=== PATIENT | male | born 1960 | race Caucasian/White ===

== ENCOUNTER 2017-03-07 02:28 | Inpatient (IN) | payer MEDICARE, OTHER ==
--- NOTE | 2017-03-07 02:47 | HP ---
COWS - Scale Resting Pulse: 0= [place] 80 or Below Sweatin= No chills or Flushing Restless Observation: 5= Unable to Sit Still Pupil Size: 1= Pupils >than Normal Bone or Joint Aches: 4=Acute Joint/Muscle Pain Runny Nose/ Eye Tearin= None GI Upset > 30mins: 1= Stomach Cramp Tremor Observation: 2= Slight Tremor Visible Yawning Observation: 1= 1-2x During Session Anxiety or Irritability: 2=Irritable/Anxious Goose Flesh Skin: 0=Smooth Skin COWS Score: 16 Admission ROS BHS - HPI Chief Complaint: c/o opioid dependence. seeking detox txment Allergies/Adverse Reactions: Allergies Allergy/AdvReac Type Severity Reaction Status Date / Time Fish Containing Products Allergy Swelling Verified 03/07/17 02:42 [Fish Product Derivatives] No Known Drug Allergies Allergy Verified 03/07/17 02:42 History of Present Illness: 56 Y.O. MALE WITH OPIOID DEPENDENCE ADMITTED FOR DETOX TXMENT Exam Limitations: No Limitations - Ebola screening Have you traveled outside of the country in the last 21 days: No Have you had contact with anyone from an Ebola affected area: No Do you have a fever: No - Review of Systems Constitutional: Loss of Appetite, Malaise EENT: reports: Dental Problems (DENTURES) Respiratory: reports: No Symptoms reported Cardiac: reports: No Symptoms Reported GI: reports: Abdominal cramping : reports: No Symptoms Reported Musculoskeletal: reports: Back Pain, Joint Pain, Neck Pain Integumentary: reports: No Symptoms Reported Neuro: reports: No Symptoms reported Endocrine: reports: No Symptoms Reported Hematology: reports: No Symptoms Reported Psychiatric: reports: Anxious, Depressed Other Systems: Reviewed and Negative Patient History - Patient Medical History Hx Anemia: No Hx Asthma: No Hx Chronic Obstructive Pulmonary Disease (COPD): No Hx Cardiac Disorders: No Hx Congestive Heart Failure: No Hx Hypertension: No Hx Hypercholesterolemia: No Hx Pacemaker: No HX Cerebrovascular Accident: No Hx Seizures: No Hx Dementia: No Hx Diabetes: No Hx Gastrointestinal Disorders: No Hx Liver Disease: No Hx Genitourinary Disorders: No Hx Sexually Transmitted Disorders: No Hx Renal Disease (ESRD): No Hx Thyroid Disease: No Hx Human Immunodeficiency Virus (HIV): No Hx Hepatitis C: Yes (NO [place]) Hx Depression: Yes Hx Suicide Attempt: No Hx Bipolar Disorder: No Hx Schizophrenia: No Other Medical History: DENIES - Patient Surgical History Past Surgical History: Yes Hx Neurologic Surgery: No Hx Cataract Extraction: No Hx Cardiac Surgery: No Hx Lung Surgery: No Hx Breast Surgery: No Hx Breast Biopsy: No Hx Abdominal Surgery: Yes (HERNIA SX R inguinal hernia repair in ) Hx Appendectomy: No Hx Cholecystectomy: No Hx Genitourinary Surgery: No Hx Section: No Hx Orthopedic Surgery: No Anesthesia Reaction: No - PPD History Previous Implant?: Yes Documented Results: Negative w/proof Implanted On Prior [facility] [place] Admission?: Yes Date: 02/26/15 Results: 0mm PPD to be Administered?: Yes - Smoking Cessation Smoking history: Current every day smoker Have you smoked in the past 12 months: Yes Aproximately how many cigarettes per day: 10 Cigars Per Day: 0 Hx Chewing Tobacco Use: No Initiated information on smoking cessation: Yes 'Breaking Loose' booklet given: 03/07/17 - Substance & Tx. History Hx Alcohol Use: No Hx Substance Use: Yes Substance Use Type: Cocaine, Heroin Hx Substance Use Treatment: Yes ([facility]) - Substances Abused HEROINE Route: Injection Frequency: Daily Amount used: 10 BAGS Age of first use: 24 Date of Last Use: 03/06/17 COCAINE Route: Smoking Frequency: Daily Amount used: 1 GM Age of first use: 18 Date of Last Use: 03/06/17 Family Disease History - Family Disease History Family Disease History: Heart Disease: Father (HAD RI AND ), Mother (HAD RI AND ) Admission Physical Exam [facility] - Physical General Appearance: Yes: Appropriately Dressed, Anxious, Other (RESTLESSNESS) HEENTM: Yes: EOMI, Normocephalic, ADALBERTO, Pharynx Normal, Other (DENUTES UPPER AND LOWER) Respiratory: Yes: Chest Non-Tender, Lungs Clear, Normal Breath Sounds, No Respiratory Distress, No Accessory Muscle Use Neck: Yes: No masses,lesions,Nodules, Supple, Trachea in good position Breast: Yes: Breast Exam Deferred Cardiology: Yes: Regular Rhythm, Regular Rate, S1, S2 Abdominal: Yes: Normal Bowel Sounds, Non Tender, Flat, Soft Genitourinary: Yes: Within Normal Limits Back: Yes: Normal Inspection Musculoskeletal: Yes: full range of Motion, Gait Steady Extremities: Yes: Normal Capillary Refill, Normal Range of Motion, Non-Tender, Tremors Neurological: Yes: Within Normal Limits, Alert Integumentary: Yes: Normal Color, Dry, Warm, Track Goodman Lymphatic: Yes: Within Normal Limits - Diagnostic (1) Nicotine dependence Current Visit: Yes Status: Chronic Qualifiers: Nicotine product type: cigarettes Substance use status: uncomplicated Qualified Code(s): F17.210 - Nicotine dependence, cigarettes, uncomplicated (2) Opioid dependence with withdrawal Current Visit: Yes Status: Chronic (3) Cocaine dependence, uncomplicated Current Visit: Yes Status: Chronic Cleared for Admission [facility] - Detox or Rehab [facility] Level of Care: Medically Managed Detox Regimen/Protocol: Methadone [facility] Breath Alcohol Content Breath Alcohol Content: 0 Vital Signs - Vital Signs Vital Signs Refused: No Temperature: 98.4 F Temperature Source: Oral Pulse Rate: 73 Respiratory Rate: 20 Blood Pressure: 111/76 BP Location: Left Arm Blood Pressure Position: Sitting - Height Height: 5 ft 11 in - Weight Weight: 65.771 kg Weight Measurement Method: Standing Scale Body Mass Index (BMI): 20.2 Urine Drug Screen - Test Device Lot Number: [id number] Expiration Date: 12/17/18 - Control Is Test Valid: Yes - Results Drug Screen Negative: No Urine Drug Screen Results: CHANDA-Cocaine, OPI-Opiates
[2017-03-07] MEDS ORDERED: diphenhydrAMINE HCL 50 MG CAPSULE PO PRN (02:57)
[2017-03-07] MEDS ORDERED: LOPERAMIDE HCL 2 MG CAPSULE PO PRN (02:57)
[2017-03-07] MEDS ORDERED: MAGNESIUM CITRATE 300 ML BOTTLE PO PRN (02:57)
[2017-03-07] MEDS ORDERED: hydrOXYzine PAMOATE 50 MG CAPSULE (FP) PO PRN (02:57)
[2017-03-07] MEDS ORDERED: MAG HYDROX/AL HYDROX/SIMETH 30 ML UNIT-DOSE CUP PO PRN (02:57)
[2017-03-07] MEDS ORDERED: ACETAMINOPHEN 325 MG TABLET (FP) PO PRN (02:57)
[2017-03-07] MEDS ORDERED: MENTHOL/PHENOL 1 EACH UD MM PRN (02:57)
[2017-03-07] MEDS ORDERED: MAGNESIUM HYDROX 2400MG/30ML ORAL SUSPENSION 30 ML CUP PO PRN (02:57)
[2017-03-07] MEDS ORDERED: P-EPHED 60MG/TRIPROLIDI 2.5MG TABLET PO PRN (02:57)
[2017-03-07] MEDS ORDERED: NICOTINE POLACRILEX 2 MG GUM BC PRN (02:57)
[2017-03-07] MEDS ORDERED: METHADONE HCL 10 MG TABLET (FOR DETOX USE ONLY) PO ONE ×3 (02:57→23:00)
[2017-03-07] MEDS ORDERED: guaiFENesin/D-METHORPHAN HB 10 ML UNIT-DOSE CUPS PO PRN (02:57)
[2017-03-07] MEDS ORDERED: IBUPROFEN 400 MG TABLET (FP) PO PRN (02:57)
[2017-03-07 02:58] VITALS: BMI 20.2
[2017-03-07] MEDS: diazePAM 5 MG TABLET PO PRN ×4 (03:40→22:14)
--- NOTE | 2017-03-07 07:44 | CONSULT ---
[facility] Psychiatric Consult - Data Date of interview: 03/07/17 Identifying data: This is 56 years old male with no psychiatric hospitalization history intoxicated with: Cocaine, Heroin, Nicotine, history of Al;cohol and Xanax abuse/dependency Substance Abuse History: - Smoking Cessation. Smoking history: Current every day smoker. Have you smoked in the past 12 months: Yes. Aproximately how many cigarettes per day: 10. Cigars Per Day: 0. Hx Chewing Tobacco Use: No. Initiated information on smoking cessation: Yes. 'Breaking Loose' booklet given : 03/07/17. - Substance & Tx. History. Hx Alcohol Use: No. Hx Substance Use: Yes. Substance Use Type: Cocaine, Heroin. Hx Substance Use Treatment: Yes ( [facility]). - Substances Abused. HEROINE. Route: Injection. Frequency: Daily. Amount used: 10 BAGS. Age of first use: 24. Date of Last Use: 03/06/17. COCAINE. Route: Smoking. Frequency: Daily. Amount used: 1 GM. Age of first use: 18. Date of Last Use: 03/06/17 Medical History: He0pC+, Hypercholesterolemia Psychiatric History: Patient reports history of anxiety and [id number], reports tyaking prior to admission: Seroquel 50mg p[o qhs Physical/Sexual Abuse/Trauma History: Denies Additional Comment: Seroquel 50mg p[o qhs Mental Status Exam - Mental Status Exam Alert and Oriented to: Person Cognitive Function: Fair Patient Appearance: Unkempt Mood: Anxious Affect: Mood Congruent Patient Behavior: Cooperative Speech Pattern: Appropriate Voice Loudness: Normal Thought Process: Circumstantial Thought Disorder: Being Controlled Hallucinations: Denies Suicidal Ideation: Denies Homicidal Ideation: Denies Insight/Judgement: Fair Sleep: Difficulty falling asleep Appetite: Weight loss Muscle strength/Tone: Normal Gait/Station: Normal Additional Comments: Seroquel 50mg p[o qhs Psychiatric Findings - Problem List ([place] 1, 2,3) (1) Cocaine dependence, uncomplicated Current Visit: Yes Status: Chronic (2) Nicotine dependence Current Visit: Yes Status: Chronic Qualifiers: Nicotine product type: cigarettes Substance use status: uncomplicated Qualified Code(s): F17.210 - Nicotine dependence, cigarettes, uncomplicated (3) Opioid dependence with withdrawal Current Visit: Yes Status: Chronic (4) Alcohol dependence Current Visit: No Status: Active (5) Cocaine abuse Current Visit: No Status: Active (6) MARIJUANA Current Visit: No Status: Active (7) Anxiety Current Visit: No Status: Acute (8) Drug-induced mood disorder Current Visit: No Status: Acute (9) Opioid dependence Current Visit: No Status: Acute (10) Substance induced mood disorder Current Visit: No Status: Acute Comment: Seroquel 50mg p[o qhs
--- NOTE | 2017-03-07 09:58 | PN ---
BHS COWS - Scale Resting Pulse: 0= [place] 80 or Below Sweatin=Flushed/Facial Moisture Restless Observation: 1= Difficult to Sit Still Pupil Size: 1= Pupils >than Normal Bone or Joint Aches: 2= Severe Diffuse Aches Runny Nose/ Eye Tearin= Nasal Congestion GI Upset > 30mins: 2= Nausea/Diarrhea Tremor Observation of Outstretched Hands: 1= Tremor [place], Not Seen Yawning Observation: 0= None Anxiety or Irritability: 2=Irritable/Anxious Goose Flesh Skin: 0=Smooth Skin COWS Score: 12 BHS Progress Note (SOAP) Subjective: interrupted sleep, sweats, shakes, nausea, Objective: 03/07/17 09:56 Vital Signs Temperature 98.1 F 03/07/17 06:00 Pulse Rate 65 03/07/17 06:00 Respiratory Rate 18 03/07/17 06:00 Blood Pressure 87/56 03/07/17 06:00 O2 Sat by Pulse Oximetry (%) labs pending pt aox3 in nad ambulating Assessment: 03/07/17 09:57 withdrawal sx;s Plan: cont. detox increase fluids f/up pending labs
[2017-03-07 10:14] LABS: MCH 30.3 pg (25.7-33.7); MEAN PLT VOLUME 8.9 fl (7.5-11.1); PLATELET COUNT 241 K/MM3 (134-434); RDW 13.1 % (11.9-15.9); WHITE BLOOD COUNT 6.2 K/mm3 (4.0-10.0)
[2017-03-07 10:28] LABS: ALBUMIN 3.5 g/dl (3.4-5.0); ANION GAP 5 (8-16); BILIRUBIN,TOTAL 0.4 mg/dL (0.2-1.0); CO2 32 mmol/L (21-32); GLUCOSE,RANDOM 97 mg/dL (74-106); SGOT/AST 15 U/L (15-37); SGPT/ALT 18 U/L (12-78); TOT PROT 7.3 g/dl (6.4-8.2)
[2017-03-07 10:29] LABS: ALK PHOS 65 U/L (45-117)
[2017-03-07 11:00] LABS: HIV 1 & 2 AB NEGATIVE; HIV 1 AGp24 NEGATIVE
[2017-03-07] MEDS: PRENATAL VITAMINS W/ FOLIC ACID TABLET (FP) PO SCH (11:13)
[2017-03-07] MEDS: NICOTINE 14 MG/24 HOURS TOPICAL PATCH TD SCH (11:14)
--- NOTE | 2017-03-07 14:23 | EKG ---
Test Reason : Blood Pressure : / mmHG Vent. Rate : 067 BPM Atrial Rate : 067 BPM P-R Int : 166 ms QRS Dur : 086 ms QT Int : 406 ms P-R-T Axes : 075 059 048 degrees QTc Int : 429 ms NORMAL SINUS RHYTHM NORMAL ECG NO PREVIOUS ECGS AVAILABLE Confirmed by AMINAH REYES MD ([id number]) on 03/07/2017 2:22:51 PM Referred By: Confirmed By:AMINAH REYES MD
[2017-03-07 15:30] LABS: URINE APPEARANCE CLEAR; URINE BILIRUBIN NEGATIVE (NEGATIVE); URINE BLOOD NEGATIVE (NEGATIVE); URINE COLOR YELLOW; URINE GLUCOSE (UA) NEGATIVE (NEGATIVE); URINE KETONE NEGATIVE (NEGATIVE); URINE LEUK ESTERASE NEGATIVE (NEGATIVE); URINE NITRITE NEGATIVE (NEGATIVE); URINE PROTEIN NEGATIVE (NEGATIVE); URINE UROBILINOGEN NEGATIVE E.U./dl (0.2-1.0)
[2017-03-07] MEDS ORDERED: QUEtiapine FUMARATE 50 MG TABLET PO SCH (22:00)
[2017-03-07] MEDS ORDERED: THIAMINE HCL 100 MG TABLET (FP) PO SCH (22:00)
[2017-03-08] MEDS ORDERED: METHADONE HCL 10 MG TABLET (FOR DETOX USE ONLY) PO ONE (10:00)
[2017-03-08] MEDS: NICOTINE 14 MG/24 HOURS TOPICAL PATCH TD SCH (10:17)
[2017-03-08] MEDS: PRENATAL VITAMINS W/ FOLIC ACID TABLET (FP) PO SCH (10:17)
[2017-03-08] MEDS: diazePAM 5 MG TABLET PO PRN (10:18)
--- NOTE | 2017-03-08 10:21 | PN ---
BHS COWS - Scale Resting Pulse: 0= [place] 80 or Below Sweatin=Flushed/Facial Moisture Restless Observation: 1= Difficult to Sit Still Pupil Size: 1= Pupils >than Normal Bone or Joint Aches: 2= Severe Diffuse Aches Runny Nose/ Eye Tearin= Nasal Congestion GI Upset > 30mins: 1= Stomach Cramp Tremor Observation of Outstretched Hands: 1= Tremor [place], Not Seen Yawning Observation: 0= None Anxiety or Irritability: 2=Irritable/Anxious Goose Flesh Skin: 0=Smooth Skin COWS Score: 11 S Progress Note (SOAP) Subjective: interrupted sleep, sweats, bodyaches Objective: 03/08/17 10:19 Vital Signs Temperature 97.3 F L 03/08/17 10:15 Pulse Rate 94 H 03/08/17 10:15 Respiratory Rate 16 03/08/17 10:15 Blood Pressure 131/85 03/08/17 10:15 O2 Sat by Pulse Oximetry (%) Laboratory Tests 03/07/17 03/07/17 03/07/17 07:00 07:00 07:00 WBC 6.2 RBC 4.33 Hgb 13.1 Hct 39.8 MCV 92.0 MCHC 33.0 RDW 13.1 Plt Count 241 MPV 8.9 Sodium 142 Potassium 4.2 Chloride 105 Carbon Dioxide 32 Anion Gap 5 L BUN 25 H D Creatinine 1.0 Creat Clearance w eGFR > 60 Random Glucose 97 D Calcium 9.0 Total Bilirubin 0.4 D AST 15 D ALT 18 Alkaline Phosphatase 65 Total Protein 7.3 Albumin 3.5 Urine Color Urine Appearance Urine pH Ur Specific [place] Urine Protein Urine Glucose (UA) Urine Ketones Urine Blood Urine Nitrite Urine Bilirubin Urine Urobilinogen Ur Leukocyte Esterase RPR Titer Hepatitis C Antibody >11.0 H HIV 1&2 Antibody Screen HIV P24 Antigen 03/07/17 03/07/17 03/07/17 07:00 07:00 10:00 WBC RBC Hgb Hct MCV MCHC RDW Plt Count MPV Sodium Potassium Chloride Carbon Dioxide Anion Gap BUN Creatinine Creat Clearance w eGFR Random Glucose Calcium Total Bilirubin AST ALT Alkaline Phosphatase Total Protein Albumin Urine Color Yellow Urine Appearance Clear Urine pH 5.0 Ur Specific [place] 1.025 Urine Protein Negative Urine Glucose (UA) Negative Urine Ketones Negative Urine Blood Negative Urine Nitrite Negative Urine Bilirubin Negative Urine Urobilinogen Negative Ur Leukocyte Esterase Negative RPR Titer Nonreactive Hepatitis C Antibody HIV 1&2 Antibody Screen Negative HIV P24 Antigen Negative pt aox3 in nad but irritable Assessment: 03/08/17 10:20 withdrawal sx's Plan: cont. detox increase fluids motrin prn may wear own shoes
[2017-03-08 13:20] VITALS: BP 142/88; PULSE 89; TEMP 96.1
--- NOTE | 2017-03-08 14:40 | DS ---
[facility] Detox Discharge Summary Admission Date: 03/07/17 Discharge Date: 03/08/17 - History Present History: Alcohol Dependence, Cocaine Dependence, Opioid Dependence, Sedative Dependence - Physical Exam Results Vital Signs: Vital Signs Temperature 96.1 F L 03/08/17 13:20 Pulse Rate 89 03/08/17 13:20 Respiratory Rate 20 03/08/17 13:20 Blood Pressure 142/88 03/08/17 13:20 O2 Sat by Pulse Oximetry (%) - Treatment Hospital Course: Detox Protocol Followed - Medication Discharge Medications: Ambulatory Orders Quetiapine Fumarate [Seroquel -] 100 mg PO HS #30 tablet 02/24/15 No Known Home Medication 03/07/17 Quetiapine Fumarate [Seroquel -] 50 mg PO HS #30 tablet 03/07/17 - Diagnosis (1) Cocaine dependence, uncomplicated Current Visit: Yes Status: Chronic (2) Nicotine dependence Current Visit: Yes Status: Chronic Qualifiers: Nicotine product type: cigarettes Substance use status: uncomplicated Qualified Code(s): F17.210 - Nicotine dependence, cigarettes, uncomplicated (3) Opioid dependence with withdrawal Current Visit: Yes Status: Chronic (4) Alcohol dependence Current Visit: Yes Status: Chronic (5) Cocaine abuse Current Visit: No Status: Active (6) MARIJUANA Current Visit: Yes Status: Chronic (7) Anxiety Current Visit: Yes Status: Chronic (8) Hepatitis C Current Visit: Yes Status: Chronic Qualifiers: Hepatic coma status: without hepatic coma - AMA Did Patient Leave Against Medical Advice: Yes (states hes not getting enough methadone and he's leaving )
[2017-03-09] MEDS ORDERED: METHADONE HCL 5 MG TABLET (FOR DETOX USE ONLY) PO ONE (10:00)
[2017-03-10] MEDS ORDERED: METHADONE HCL 5 MG TABLET (FOR DETOX USE ONLY) PO ONE (10:00)
[2017-03-11] MEDS ORDERED: METHADONE HCL 10 MG TABLET (FOR DETOX USE ONLY) PO ONE (10:00)
[2017-03-12] MEDS ORDERED: METHADONE HCL 5 MG TABLET (FOR DETOX USE ONLY) PO ONE (06:00)
== END 2017-03-08 14:50 | disposition left against medical advice (07) | DRG 770 ==
LOC: YASAS 02:28 → Y6N 02:46
PROVIDERS: ADMIT Internal Medicine; ATTEND Internal Medicine
PROC: HZ2ZZZZ Detoxification Services for Substance Abuse Treatment (ICD-10-PCS; principal; 2017-03-07)
DX: F11.23 Opioid dependence with withdrawal (principal); F10.230 Alcohol dependence with withdrawal, uncomplicated; F14.20 Cocaine dependence, uncomplicated; F12.20 Cannabis dependence, uncomplicated; F17.210 Nicotine dependence, cigarettes, uncomplicated; F19.24 Other psychoactive substance dependence with psychoactive substance-induced mood disorder; F41.9 Anxiety disorder, unspecified; B18.2 Chronic viral hepatitis C
CPT/HCPCS: 36415; 80053; 81003; 85027; 86593; 86803; 87389; 87522; 93005; 93010

== ENCOUNTER 2018-12-27 18:04 | Inpatient (IN) | payer OTHER ==
[2018-12-27 21:38] VITALS: BMI 20.2
--- NOTE | 2018-12-27 22:28 | HP ---
CIWA Score Nausea/Vomitin-No Nausea/No Vomiting Muscle Tremors: 4-Moderate,w/Arms Extend Anxiety: 4-Mod. Anxious/Guarded Agitation: 4-Moderately Restless Paroxysmal Sweats: 3 Orientation: 0-Oriented Tacttile Disturbances: 2-Mild Itch/Numbness/Burn Auditory Disturbances: 0-None Visual Disturbances: 0-None Headache: 0-None Present CIWA-Ar Total Score: 17 - Admission Criteria [facility] Guidelines: Admission for Medically Managed Detox: Requires at least one of the followin. CIWA greater than 12 2. Seizures within the past 24 hours 3. Delirium tremens within the past 24 hours 4. Hallucinations within the past 24 hours 5. Acute intervention needed for co occurring medical disorder 6. Acute intervention needed for co occurring psychiatric disorder 7. Severe withdrawal that cannot be handled at a lower level of care (continued vomiting, continued diarrhea, abnormal vital signs) requiring intravenous medication and/or fluids 8. Patient presents the following: CIWA greater than 12 Admission Criteria Met: Admission criteria met Admission ROS [facility] Chief Complaint: SEEKING DETOX FOR WITHDRAWAL SX'S Allergies/Adverse Reactions: Allergies Allergy/AdvReac Type Severity Reaction Status Date / Time Fish Containing Products Allergy Swelling Verified 12/27/18 21:30 [Fish Product Derivatives] No Known Drug Allergies Allergy Verified 12/27/18 21:30 History of Present Illness: 58 Y.O. MALE WITH HX/O OPIOID, ALCOHOL AND COCAINE DEPENDENCE HERE FOR ALCOHOL DETOX. CLIENT IS PRESENTLY ON MMMTP. REPORTS DOSE 70 MG LDM TODAY AT [facility]. CLIENT IS SELF REFERRED HE IS KNOWN TO THIS PROGRAM. LAST HERE 2016. PRESENTS TODAY WITH C/O WITHDRAWAL SX'S. CIWA 17. DENIES ANY SIGNIFICANT PERIOD OF CLEAN TIME. DENIES HX/O SEIZURE BUT DOES REPORT HX/O DRUG OVERDOSE. DENIES SI /HI/AVH. HOMELESS, DENIES LEGALS Exam Limitations: No Limitations - Ebola screening Have you traveled outside of the country in the last 21 days: No (N) Have you had contact with anyone from an Ebola affected area: No Do you have a fever: No - Review of Systems Constitutional: Chills, Loss of Appetite, Malaise, Night Sweats, Changes in sleep EENT: reports: Dental Problems (DENTURES NOT WITH PATIENT/ MISSING TEETH) Respiratory: reports: No Symptoms reported Cardiac: reports: No Symptoms Reported GI: reports: Poor Appetite, Poor Fluid Intake : reports: No Symptoms Reported Musculoskeletal: reports: No Symptoms Reported Integumentary: reports: No Symptoms Reported Neuro: reports: Numbness, Tingling, Tremors Endocrine: reports: No Symptoms Reported Hematology: reports: No Symptoms Reported Psychiatric: reports: Orientated x3, Anxious, Depressed Other Systems: Reviewed and Negative Patient History - Patient Medical History Hx Anemia: No Hx Asthma: No Hx Chronic Obstructive Pulmonary Disease (COPD): No Hx Cardiac Disorders: No Hx Congestive Heart Failure: No Hx Hypertension: No Hx Hypercholesterolemia: No Hx Pacemaker: No HX Cerebrovascular Accident: No Hx Seizures: No Hx Dementia: No Hx Diabetes: No Hx Gastrointestinal Disorders: No Hx Liver Disease: No Hx Genitourinary Disorders: No Hx Sexually Transmitted Disorders: No Hx Renal Disease (ESRD): No Hx Thyroid Disease: No Hx Human Immunodeficiency Virus (HIV): No Hx Hepatitis C: Yes (NO [place]) Hx Depression: Yes Hx Suicide Attempt: No Hx Bipolar Disorder: No Hx Schizophrenia: No - Patient Surgical History Past Surgical History: Yes Hx Neurologic Surgery: No Hx Cataract Extraction: No Hx Cardiac Surgery: No Hx Lung Surgery: No Hx Breast Surgery: No Hx Breast Biopsy: No Hx Abdominal Surgery: Yes (HERNIA SX R inguinal hernia repair in ) Hx Appendectomy: No Hx Cholecystectomy: No Hx Genitourinary Surgery: No Hx Section: No Hx Orthopedic Surgery: No Anesthesia Reaction: No - PPD History Previous Implant?: Yes Documented Results: Negative w/proof Implanted On Prior [facility] Admission?: Yes Date: 03/07/17 Results: 0mm PPD to be Administered?: Yes - Smoking Cessation Smoking history: Current every day smoker Have you smoked in the past 12 months: Yes Aproximately how many cigarettes per day: 20 Cigars Per Day: 0 Hx Chewing Tobacco Use: No Initiated information on smoking cessation: Yes 'Breaking Loose' booklet given: 12/27/18 - Substance & Tx. History Hx Alcohol Use: Yes Hx Substance Use: Yes Substance Use Type: Alcohol, Cocaine, Heroin, Prescribed (METHADONE 70 MG) Hx Substance Use Treatment: Yes ([facility]) - Substances abused Alcohol Substance route: Oral Frequency: Daily Amount used: 1 1/2 PINT OF [place]OD[place] Age of first use: 16 Date of last use: 12/26/18 Heroin Substance route: Injection Frequency: 1-2 times per week Amount used: 5 BAGS WHEN USED Age of first use: 24 Date of last use: 12/26/18 Cocaine Substance route: Smoking Frequency: Daily Amount used: 1 GM Age of first use: 23 Date of last use: 12/26/18 Family Disease History - Family Disease History Family Disease History: Heart Disease: Father (HAD MA AND ), Mother (HAD MA AND ) Admission Physical Exam [facility] - Vital Signs Vital Signs: Vital Signs - 24 hr 12/27/18 21:32 Temperature 97.1 F L Pulse Rate 62 Respiratory 18 Rate Blood Pressure 111/67 - Physical General Appearance: Yes: Tremorous (FELT), Anxious HEENTM: Yes: Normocephalic, Normal Voice, ADALBERTO, Pharynx Normal, Nasal Congestion , Other (EDENTULOUS) Respiratory: Yes: Chest Non-Tender, Lungs Clear, Normal Breath Sounds, No Respiratory Distress, No Accessory Muscle Use Neck: Yes: No masses,lesions,Nodules, Supple, Trachea in good position Breast: Yes: Breast Exam Deferred Cardiology: Yes: Regular Rhythm, Regular Rate, S1, S2 Abdominal: Yes: Normal Bowel Sounds, Non Tender, Soft Genitourinary: Yes: Within Normal Limits Back: Yes: Normal Inspection Musculoskeletal: Yes: full range of Motion, Gait Steady Extremities: Yes: Normal Range of Motion, Non-Tender, Tremors (FELT) Neurological: Yes: Fully Oriented, Alert, Motor Strength 5/5, Depressed Affect Integumentary: Yes: Dry, Warm Lymphatic: Yes: Within Normal Limits - Diagnostic (1) Alcohol dependence with uncomplicated withdrawal Current Visit: Yes Status: Acute (2) Methadone maintenance therapy patient Current Visit: Yes Status: Chronic (3) Cocaine abuse, uncomplicated Current Visit: Yes Status: Acute (4) Drug-induced mood disorder Current Visit: Yes Status: Acute (5) Nicotine dependence Current Visit: Yes Status: Chronic Qualifiers: Nicotine product type: cigarettes Substance use status: uncomplicated Qualified Code(s): F17.210 - Nicotine dependence, cigarettes, uncomplicated (6) Hepatitis C Current Visit: Yes Status: Acute Cleared for Admission [facility] - Detox or Rehab [facility] Level of Care: Medically Managed Detox Regimen/Protocol: Librium Claeared for Rehab Admission: No Breathalyzer - Breathalyzer Breathalyzer: 0 Urine Drug Screen - Test Device Lot number: [id number] Expiration date: 08/18/20 - Control Is test valid?: Yes - Results Drug screen NEGATIVE: No Urine drug screen results: CHANDA-Cocaine, FEN-Fentanyl, MOP-Opiates, MTD-Methadone Inpatient Rehab Admission - Rehab Decision to Admit Inpatient rehab admission?: No
[2018-12-27] MEDS ORDERED: MAGNESIUM CITRATE 300 ML BOTTLE PO PRN (22:30)
[2018-12-27] MEDS ORDERED: P-EPHED 60MG/TRIPROLIDI 2.5MG TABLET PO PRN (22:30)
[2018-12-27] MEDS ORDERED: BISMUTH SUBSALICYLATE 524 MG/30 ML UD PO PRN (22:30)
[2018-12-27] MEDS ORDERED: chlordiazePOXIDE HCL 10 MG CAPSULE PO PRN (22:30)
[2018-12-27] MEDS ORDERED: MENTHOL/PHENOL 1 EACH UD MM PRN (22:30)
[2018-12-27] MEDS ORDERED: NICOTINE POLACRILEX 2 MG GUM BUC PRN (22:30)
[2018-12-27] MEDS ORDERED: ACETAMINOPHEN 325 MG TABLET (FP) PO PRN ×2 (22:30)
[2018-12-27] MEDS ORDERED: MAGNESIUM HYDROX 2400MG/30ML ORAL SUSPENSION 30 ML CUP PO PRN (22:30)
[2018-12-27] MEDS ORDERED: ONDANSETRON *ODT* 4 MG TABLET SL PRN (22:30)
[2018-12-27] MEDS ORDERED: hydrOXYzine PAMOATE 25 MG CAPSULE (FP) PO PRN (22:30)
[2018-12-27] MEDS ORDERED: MAG HYDROX/AL HYDROX/SIMETH 30 ML UNIT-DOSE CUP PO PRN (22:30)
[2018-12-27] MEDS ORDERED: guaiFENesin 200 MG/10 ML 10 ML UNIT-DOSE CUPS PO PRN (22:30)
[2018-12-27] MEDS ORDERED: DICYCLOMINE HCL 10 MG CAPSULE PO PRN (22:30)
[2018-12-27] MEDS ORDERED: METHOCARBAMOL 500 MG TABLET PO PRN (22:30)
[2018-12-27] MEDS ORDERED: MELATONIN 5 MG TABLETS PO PRN (22:30)
[2018-12-27] MEDS ORDERED: IBUPROFEN 400 MG TABLET (FP) PO PRN (22:30)
[2018-12-27] MEDS: chlordiazePOXIDE HCL 25 MG CAPSULE PO SCH (23:59)
[2018-12-28] MEDS: chlordiazePOXIDE HCL 25 MG CAPSULE PO SCH ×2 (06:34→14:26)
[2018-12-28] MEDS ORDERED: METHADONE HCL 10 MG TABLET PO ONE (08:59)
[2018-12-28] MEDS ORDERED: METHADONE 40 MG, METHADONE 30 MG PO ONE (09:15)
[2018-12-28] MEDS ORDERED: METHADONE HCL 10 MG TABLET ONE (09:20)
[2018-12-28] MEDS ORDERED: METHADONE HCL 40 MG DISPERSABLE TABLET ONE (09:20)
--- NOTE | 2018-12-28 09:54 | PN ---
BHS CIWA - CIWA Score Nausea/Vomitin Muscle Tremors: 2 Anxiety: 2 Agitation: 2 Paroxysmal Sweats: 1-Minimal Palms Moist Orientation: 0-Oriented Tacttile Disturbances: 1-Very Mild Itch/Numbness Auditory Disturbances: 1-Very Mild Visual Disturbances: 0-None Headache: 2-Mild CIWA-Ar Total Score: 13 BHS Progress Note (SOAP) Subjective: alert,irritable,anxious,interrupted sleep,tremor, Objective: 12/28/18 10:01 Vital Signs Temperature 97.7 F 12/28/18 09:04 Pulse Rate 61 12/28/18 09:04 Respiratory Rate 18 12/28/18 09:04 Blood Pressure 117/56 L 12/28/18 09:04 O2 Sat by Pulse Oximetry (%) labs pending Assessment: 12/28/18 10:01 withdrawal symptom Plan: continue detox
[2018-12-28 10:19] LABS: HEMATOCRIT 40.4 % (35.4-49); HEMOGLOBIN 13.2 GM/dL (11.7-16.9); MCH 30.1 pg (25.7-33.7); MCHC 32.7 g/dl (32.0-35.9); MEAN CELL VOLUME 91.9 fl (80-96); MEAN PLT VOLUME 9.4 fl (7.5-11.1); PLATELET COUNT 196 K/MM3 (134-434); RBC 4.39 M/mm3 (4.00-5.60); RDW 14.1 % (11.9-15.9); WHITE BLOOD COUNT 4.4 K/mm3 (4.0-10.0)
[2018-12-28 10:33] LABS: ALBUMIN 3.3 g/dl (3.4-5.0); ALK PHOS 59 U/L (45-117); ANION GAP 5 MMOL/L (8-16); BILIRUBIN,TOTAL 0.8 mg/dL (0.2-1); BLOOD UREA NITROGEN 17 mg/dL (7-18); CALCIUM 8.1 mg/dL (8.5-10.1); CHLORIDE 108 mmol/L (98-107); CO2 30 mmol/L (21-32); GLUCOSE,RANDOM 80 mg/dL (74-106); POTASSIUM 4.1 mmol/L (3.5-5.1); SGOT/AST 13 U/L (15-37); SGPT/ALT 14 U/L (13-61); SODIUM 143 mmol/L (136-145); TOT PROT 6.5 g/dl (6.4-8.2)
[2018-12-28] MEDS: PRENATAL VITAMINS W/ FOLIC ACID TABLET (FP) PO SCH (11:18)
[2018-12-28] MEDS: NICOTINE 21 MG/24 HOURS TOPICAL PATCH TD SCH (11:19)
--- NOTE | 2018-12-28 14:55 | CONSULT ---
[facility] Psychiatric Consult - Data Date of interview: 12/28/18 Admission source: Self-referred Identifying data: Mr Botello is a 58 years old male, unemployed receiving food stamp, homeless seeking detox treatment for alcohol, opioid and cocaine Substance Abuse History: Reports history of alcohol, heroin and cocaine use. Refer to addiction coinselor's summary for further information Medical History: Significant for history of hepatitis C, S/P old fracture right hand and S/P right Inguinal Hernia repair. Patient is on methadone 70 mg/day([facility]). Smokes cigarettea 1ppd Psychiatric History: Reports that 4 years ago, he was seeing Dr Nix, a private psychiatrist in [facility] and he was prescribed Seroquel for his mood and insomnia. Claims that he has not had any psychiatrist since besides occasional contact during admidssions to inpatient substance abuse treatment. Denies previous psychiatric hospitalization or suicidal attempt. At present, reports feeling depressed, anxious and sleeping poorly. Request to be ordered Seroquel 25 mg po HS Physical/Sexual Abuse/Trauma History: Denies history of emotional, physical or sexual abuse as well as DV relationship. No service Additional Comment: Reports history of multiple previous arrests including one felony conviction. Denies being on parole/probation at present Mental Status Exam - Mental Status Exam Alert and Oriented to: Time, Place, Person Patient Appearance: Well Groomed Mood: Depressed, Anxious Affect: Appropriate Patient Behavior: Cooperative Speech Pattern: Clear Voice Loudness: Normal Thought Process: Intact, Goal Oriented Thought Disorder: Not Present Hallucinations: Denies Suicidal Ideation: Denies Homicidal Ideation: Denies Insight/Judgement: Poor Sleep: Poorly Appetite: Fair Muscle strength/Tone: Normal Gait/Station: Normal Psychiatric Findings - Problem List ([place] 1, 2,3) (1) Substance induced mood disorder Current Visit: Yes Status: Acute (2) Substance-induced sleep disorder Current Visit: Yes Status: Acute (3) Alcohol dependence with uncomplicated withdrawal Current Visit: Yes Status: Acute (4) Cocaine dependence Current Visit: Yes Status: Acute (5) Opioid dependence on agonist therapy Current Visit: Yes Status: Chronic (6) Nicotine dependence Current Visit: Yes Status: Chronic Qualifiers: Nicotine product type: cigarettes Substance use status: uncomplicated Qualified Code(s): F17.210 - Nicotine dependence, cigarettes, uncomplicated (7) Hepatitis C Current Visit: Yes Status: Chronic - Initial Treatment Plan Initial Treatment Plan: 1) Start Setoquel 25 mg po HS. 2) Continue inpatient detoxification
[2018-12-28] MEDS: chlordiazePOXIDE 5 MG CAPSULE PO SCH (22:10)
[2018-12-28] MEDS: THIAMINE HCL 100 MG TABLET (FP) PO SCH (22:25)
[2018-12-28] MEDS: QUEtiapine FUMARATE 25 MG TABLET (FP) PO SCH (22:25)
[2018-12-29] MEDS ORDERED: METHADONE HCL 40 MG DISPERSABLE TABLET ONE (04:57)
[2018-12-29] MEDS ORDERED: METHADONE HCL 10 MG TABLET ONE (04:58)
[2018-12-29] MEDS ORDERED: METHADONE HCL 40 MG DISPERSABLE TABLET PO SCH (06:00)
[2018-12-29] MEDS: METHADONE 40 MG, METHADONE 30 MG PO SCH (06:12)
[2018-12-29] MEDS: chlordiazePOXIDE 5 MG CAPSULE PO SCH ×2 (06:12→13:15)
[2018-12-29] MEDS: PRENATAL VITAMINS W/ FOLIC ACID TABLET (FP) PO SCH (11:01)
[2018-12-29] MEDS: NICOTINE 21 MG/24 HOURS TOPICAL PATCH TD SCH (11:02)
--- NOTE | 2018-12-29 11:12 | PN ---
S CIWA - CIWA Score Nausea/Vomitin Muscle Tremors: 2 Anxiety: 2 Agitation: 2 Paroxysmal Sweats: 1-Minimal Palms Moist Orientation: 0-Oriented Tacttile Disturbances: 1-Very Mild Itch/Numbness Auditory Disturbances: 0-None Visual Disturbances: 1-Very Mild Sensitivity Headache: 2-Mild CIWA-Ar Total Score: 13 B[facility] Progress Note (SOAP) Subjective: alert,irritable,anxious,interrupted sleep,tremor Objective: 12/29/18 11:11 Vital Signs Temperature 97.5 F L 12/29/18 09:17 Pulse Rate 52 L 12/29/18 09:17 Respiratory Rate 16 12/29/18 09:17 Blood Pressure 103/51 L 12/29/18 09:17 O2 Sat by Pulse Oximetry (%) 12/29/18 11:13 Laboratory Last Values WBC 4.4 K/mm3 (4.0-10.0) 12/28/18 07:00 RBC 4.39 M/mm3 (4.00-5.60) 12/28/18 07:00 Hgb 13.2 GM/dL (11.7-16.9) 12/28/18 07:00 Hct 40.4 % (35.4-49) 12/28/18 07:00 MCV 91.9 fl (80-96) 12/28/18 07:00 MCH 30.1 pg (25.7-33.7) 12/28/18 07:00 MCHC 32.7 g/dl (32.0-35.9) 12/28/18 07:00 RDW 14.1 % (11.9-15.9) 12/28/18 07:00 Plt Count 196 K/MM3 (134-434) 12/28/18 07:00 MPV 9.4 fl (7.5-11.1) 12/28/18 07:00 Sodium 143 mmol/L (136-145) 12/28/18 07:00 Potassium 4.1 mmol/L (3.5-5.1) 12/28/18 07:00 Chloride 108 mmol/L (98-107) H 12/28/18 07:00 Carbon Dioxide 30 mmol/L (21-32) 12/28/18 07:00 Anion Gap 5 MMOL/L (8-16) L 12/28/18 07:00 BUN 17 mg/dL (7-18) 12/28/18 07:00 Creatinine 1.0 mg/dL (0.55-1.3) 12/28/18 07:00 Creat Clearance w eGFR 76.22 (>60) 12/28/18 07:00 Random Glucose 80 mg/dL (74-106) 12/28/18 07:00 Calcium 8.1 mg/dL (8.5-10.1) L 12/28/18 07:00 Total Bilirubin 0.8 mg/dL (0.2-1) 12/28/18 07:00 AST 13 U/L (15-37) L 12/28/18 07:00 ALT 14 U/L (13-61) 12/28/18 07:00 Alkaline Phosphatase 59 U/L (45-117) 12/28/18 07:00 Total Protein 6.5 g/dl (6.4-8.2) 12/28/18 07:00 Albumin 3.3 g/dl (3.4-5.0) L 12/28/18 07:00 RPR Titer Nonreactive (NONREACTIVE) 12/28/18 07:00 Assessment: 12/29/18 11:13 withdrawal symptom Plan: continue detox
[2018-12-29] MEDS ORDERED: chlordiazePOXIDE HCL 10 MG CAPSULE PO PRN (21:00)
[2018-12-29] MEDS: THIAMINE HCL 100 MG TABLET (FP) PO SCH (22:40)
[2018-12-29] MEDS: chlordiazePOXIDE HCL 10 MG CAPSULE PO SCH (22:40)
[2018-12-29] MEDS: QUEtiapine FUMARATE 25 MG TABLET (FP) PO SCH (22:40)
[2018-12-29 23:29] LABS: PH,URINE 5.5 (5.0-8.0); URINE APPEARANCE CLOUDY; URINE BILIRUBIN NEGATIVE (NEGATIVE); URINE COLOR YELLOW; URINE GLUCOSE (UA) NEGATIVE (NEGATIVE); URINE KETONE NEGATIVE (NEGATIVE); URINE LEUK ESTERASE NEGATIVE (NEGATIVE); URINE NITRITE NEGATIVE (NEGATIVE); URINE PROTEIN NEGATIVE (NEGATIVE); URINE UROBILINOGEN 0.2 mg/dL (0.2-1.0)
[2018-12-30] MEDS ORDERED: METHADONE HCL 10 MG TABLET ONE (05:03)
[2018-12-30] MEDS ORDERED: METHADONE HCL 40 MG DISPERSABLE TABLET ONE (05:03)
[2018-12-30] MEDS: chlordiazePOXIDE HCL 10 MG CAPSULE PO SCH ×2 (05:41→13:26)
[2018-12-30] MEDS: METHADONE 40 MG, METHADONE 30 MG PO SCH (05:41)
[2018-12-30] MEDS: NICOTINE 21 MG/24 HOURS TOPICAL PATCH TD SCH (09:47)
[2018-12-30] MEDS: PRENATAL VITAMINS W/ FOLIC ACID TABLET (FP) PO SCH (09:48)
--- NOTE | 2018-12-30 11:19 | PN ---
[facility] Progress Note (SOAP) Subjective: Mild shakes and irritability Objective: 12/30/18 11:17 Last Vital Signs Temp Pulse Resp BP Pulse Ox 97.5 F L 68 16 94/60 12/30/18 10:00 12/30/18 10:00 12/30/18 10:00 12/30/18 10:00 Laboratory Last Values WBC 4.4 K/mm3 (4.0-10.0) 12/28/18 07:00 RBC 4.39 M/mm3 (4.00-5.60) 12/28/18 07:00 Hgb 13.2 GM/dL (11.7-16.9) 12/28/18 07:00 Hct 40.4 % (35.4-49) 12/28/18 07:00 MCV 91.9 fl (80-96) 12/28/18 07:00 MCH 30.1 pg (25.7-33.7) 12/28/18 07:00 MCHC 32.7 g/dl (32.0-35.9) 12/28/18 07:00 RDW 14.1 % (11.9-15.9) 12/28/18 07:00 Plt Count 196 K/MM3 (134-434) 12/28/18 07:00 MPV 9.4 fl (7.5-11.1) 12/28/18 07:00 Sodium 143 mmol/L (136-145) 12/28/18 07:00 Potassium 4.1 mmol/L (3.5-5.1) 12/28/18 07:00 Chloride 108 mmol/L (98-107) H 12/28/18 07:00 Carbon Dioxide 30 mmol/L (21-32) 12/28/18 07:00 Anion Gap 5 MMOL/L (8-16) L 12/28/18 07:00 BUN 17 mg/dL (7-18) 12/28/18 07:00 Creatinine 1.0 mg/dL (0.55-1.3) 12/28/18 07:00 Creat Clearance w eGFR 76.22 (>60) 12/28/18 07:00 Random Glucose 80 mg/dL (74-106) 12/28/18 07:00 Calcium 8.1 mg/dL (8.5-10.1) L 12/28/18 07:00 Total Bilirubin 0.8 mg/dL (0.2-1) 12/28/18 07:00 AST 13 U/L (15-37) L 12/28/18 07:00 ALT 14 U/L (13-61) 12/28/18 07:00 Alkaline Phosphatase 59 U/L (45-117) 12/28/18 07:00 Total Protein 6.5 g/dl (6.4-8.2) 12/28/18 07:00 Albumin 3.3 g/dl (3.4-5.0) L 12/28/18 07:00 Urine Color Yellow 12/29/18 10:53 Urine Appearance Cloudy 12/29/18 10:53 Urine pH 5.5 (5.0-8.0) 12/29/18 10:53 Ur Specific [place] 1.016 (1.010-1.035) 12/29/18 10:53 Urine Protein Negative (NEGATIVE) 12/29/18 10:53 Urine Glucose (UA) Negative (NEGATIVE) 12/29/18 10:53 Urine Ketones Negative (NEGATIVE) 12/29/18 10:53 Urine Blood Negative (NEGATIVE) 12/29/18 10:53 Urine Nitrite Negative (NEGATIVE) 12/29/18 10:53 Urine Bilirubin Negative (NEGATIVE) 12/29/18 10:53 Urine Urobilinogen 0.2 mg/dL (0.2-1.0) 12/29/18 10:53 Ur Leukocyte Esterase Negative (NEGATIVE) 12/29/18 10:53 RPR Titer Nonreactive (NONREACTIVE) 12/28/18 07:00 Labs noted Assessment: 12/30/18 11:18 Resolving withdrawal sx Plan: Continue detox
[2018-12-30 17:23] VITALS: BP 138/52; PULSE 85; TEMP 97.7
--- NOTE | 2018-12-30 20:33 | DS ---
[facility] Detox Discharge Summary Admission Date: 12/27/18 Discharge Date: 12/30/18 - History Additional Comments: Patient left against medical advice. 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 Patient signed the AMA form. Pertinent Past History: Opiod dependence, alcohol dependence, cocaine dependence, hypercholesterolemia, MMTD, Hep. C and anxiety - Physical Exam Results Vital Signs: Vital Signs Temperature 97.7 F 12/30/18 17:23 Pulse Rate 85 12/30/18 17:23 Respiratory Rate 18 12/30/18 17:23 Blood Pressure 138/52 L 12/30/18 17:23 O2 Sat by Pulse Oximetry (%) Laboratory Last Values WBC 4.4 K/mm3 (4.0-10.0) 12/28/18 07:00 RBC 4.39 M/mm3 (4.00-5.60) 12/28/18 07:00 Hgb 13.2 GM/dL (11.7-16.9) 12/28/18 07:00 Hct 40.4 % (35.4-49) 12/28/18 07:00 MCV 91.9 fl (80-96) 12/28/18 07:00 MCH 30.1 pg (25.7-33.7) 12/28/18 07:00 MCHC 32.7 g/dl (32.0-35.9) 12/28/18 07:00 RDW 14.1 % (11.9-15.9) 12/28/18 07:00 Plt Count 196 K/MM3 (134-434) 12/28/18 07:00 MPV 9.4 fl (7.5-11.1) 12/28/18 07:00 Sodium 143 mmol/L (136-145) 12/28/18 07:00 Potassium 4.1 mmol/L (3.5-5.1) 12/28/18 07:00 Chloride 108 mmol/L (98-107) H 12/28/18 07:00 Carbon Dioxide 30 mmol/L (21-32) 12/28/18 07:00 Anion Gap 5 MMOL/L (8-16) L 12/28/18 07:00 BUN 17 mg/dL (7-18) 12/28/18 07:00 Creatinine 1.0 mg/dL (0.55-1.3) 12/28/18 07:00 Creat Clearance w eGFR 76.22 (>60) 12/28/18 07:00 Random Glucose 80 mg/dL (74-106) 12/28/18 07:00 Calcium 8.1 mg/dL (8.5-10.1) L 12/28/18 07:00 Total Bilirubin 0.8 mg/dL (0.2-1) 12/28/18 07:00 AST 13 U/L (15-37) L 12/28/18 07:00 ALT 14 U/L (13-61) 12/28/18 07:00 Alkaline Phosphatase 59 U/L (45-117) 12/28/18 07:00 Total Protein 6.5 g/dl (6.4-8.2) 12/28/18 07:00 Albumin 3.3 g/dl (3.4-5.0) L 12/28/18 07:00 Urine Color Yellow 12/29/18 10:53 Urine Appearance Cloudy 12/29/18 10:53 Urine pH 5.5 (5.0-8.0) 12/29/18 10:53 Ur Specific [place] 1.016 (1.010-1.035) 12/29/18 10:53 Urine Protein Negative (NEGATIVE) 12/29/18 10:53 Urine Glucose (UA) Negative (NEGATIVE) 12/29/18 10:53 Urine Ketones Negative (NEGATIVE) 12/29/18 10:53 Urine Blood Negative (NEGATIVE) 12/29/18 10:53 Urine Nitrite Negative (NEGATIVE) 12/29/18 10:53 Urine Bilirubin Negative (NEGATIVE) 12/29/18 10:53 Urine Urobilinogen 0.2 mg/dL (0.2-1.0) 12/29/18 10:53 Ur Leukocyte Esterase Negative (NEGATIVE) 12/29/18 10:53 RPR Titer Nonreactive (NONREACTIVE) 12/28/18 07:00 Pertinent Admission Physical Exam Findings: Withdrawal symptoms - Medication Discharge Medications: Ambulatory Orders NK [No Known Home Medication] 12/27/18 - Diagnosis (1) Alcohol dependence with uncomplicated withdrawal Current Visit: Yes Status: Chronic (2) Cocaine dependence Current Visit: Yes Status: Chronic (3) Hepatitis C Current Visit: Yes Status: Chronic (4) Methadone maintenance therapy patient Current Visit: Yes Status: Chronic (5) Nicotine dependence Current Visit: Yes Status: Chronic Qualifiers: Nicotine product type: cigarettes Substance use status: uncomplicated Qualified Code(s): F17.210 - Nicotine dependence, cigarettes, uncomplicated (6) Anxiety Current Visit: Yes Status: Chronic (7) hypercholesterolemia Current Visit: Yes Status: Suspected - AMA Did Patient Leave Against Medical Advice: Yes
== END 2018-12-30 20:22 | disposition left against medical advice (07) | DRG 770 ==
LOC: YASAS 18:04 → Y6N 22:50
PROVIDERS: ADMIT Surgery; ATTEND Surgery
PROC: HZ2ZZZZ Detoxification Services for Substance Abuse Treatment (ICD-10-PCS; principal; 2018-12-27)
DX: F10.230 Alcohol dependence with withdrawal, uncomplicated (principal); F11.20 Opioid dependence, uncomplicated; F14.20 Cocaine dependence, uncomplicated; F17.210 Nicotine dependence, cigarettes, uncomplicated; F41.9 Anxiety disorder, unspecified; F19.24 Other psychoactive substance dependence with psychoactive substance-induced mood disorder; F19.282 Other psychoactive substance dependence with psychoactive substance-induced sleep disorder; B18.2 Chronic viral hepatitis C; E78.00 Pure hypercholesterolemia, unspecified; Z91.013 Allergy to seafood
CPT/HCPCS: 36415; 80053; 81003; 85027; 86593

== ENCOUNTER 2021-03-28 13:02 | Emergency (ER) | payer OTHER ==
[2021-03-28 13:15] VITALS: TEMP 97.5; BMI 21.9
[2021-03-28 15:43] LABS: BASO % 0.4 % (0-2.0); EOS % 0.2 % (0-4.5); HEMATOCRIT 43.6 % (35.4-49); HEMOGLOBIN 14.7 GM/dL (11.7-16.9); LYMPH % 7.8 % (8-40); MCH 30.7 pg (25.7-33.7); MCHC 33.7 g/dl (32.0-35.9); MEAN PLT VOLUME 9.1 fl (7.5-11.1); MONO % 6.1 % (3.8-10.2); NEUT % 85.5 % (42.8-82.8); PLATELET COUNT 261 10^3/uL (134-434); RBC 4.79 M/mm3 (4.00-5.60); RDW 13.4 % (11.9-15.9); WHITE BLOOD COUNT 7.5 K/mm3 (4.0-10.0)
[2021-03-28 15:50] LABS: CHLORIDE 102 mmol/L (98-107); SODIUM 135 mmol/L (136-145)
[2021-03-28 15:52] LABS: CALCIUM 8.8 mg/dL (8.5-10.1)
[2021-03-28 15:53] LABS: ANION GAP 7 MMOL/L (8-16); BLOOD UREA NITROGEN 21.5 mg/dL (7-18); CO2 26 mmol/L (21-32); GLUCOSE,RANDOM 125 mg/dL (74-106)
[2021-03-28 15:56] LABS: CREATININE 1.1 mg/dL (0.55-1.3); SGOT/AST 53 U/L (15-37); SGPT/ALT 38 U/L (13-61)
[2021-03-28 15:57] LABS: BILIRUBIN,TOTAL 0.8 mg/dL (0.2-1); TOT PROT 8.4 g/dl (6.4-8.2)
[2021-03-28 15:58] LABS: ALK PHOS 70 U/L (45-117)
[2021-03-28 17:28] VITALS: BP 114/68; PULSE 96
== END 2021-03-28 17:31 | disposition left against medical advice (07) ==
LOC: JER 13:02
DX: R07.9 Chest pain, unspecified (principal); F14.10 Cocaine abuse, uncomplicated; R55 Syncope and collapse
CPT/HCPCS: 36415; 71045-TC-FY; 80053; 84484; 85025; 93005; 93010; 99284-25

== ENCOUNTER 2021-03-29 19:00 | Inpatient (IN) | payer OTHER ==
[2021-03-30 00:55] VITALS: BMI 21.7
[2021-03-30] MEDS ORDERED: MAGNESIUM CITRATE 300 ML BOTTLE PO PRN (01:39)
[2021-03-30] MEDS ORDERED: DICYCLOMINE HCL 10 MG CAPSULE PO PRN (01:39)
[2021-03-30] MEDS ORDERED: IBUPROFEN 400 MG TABLET (FP) PO PRN (01:39)
[2021-03-30] MEDS ORDERED: BISMUTH SUBSALICYLATE 524 MG/30 ML PO PRN (01:39)
[2021-03-30] MEDS ORDERED: MAG HYDROX/AL HYDROX/SIMETH 30 ML UNIT-DOSE CUP PO PRN (01:39)
[2021-03-30] MEDS ORDERED: NALOXONE HCL 0.4 MG/ML VIAL IM PRN (01:39)
[2021-03-30] MEDS ORDERED: methaDONE HCL 10 MG TABLET (FOR DETOX USE ONLY) PO ONE ×2 (01:39→09:15)
[2021-03-30] MEDS ORDERED: ONDANSETRON *ODT* 4 MG TABLET SL PRN (01:39)
[2021-03-30] MEDS ORDERED: cloNIDine HCL 0.1 MG TABLET PO PRN (01:39)
[2021-03-30] MEDS ORDERED: P-EPHED 60MG/TRIPROLIDI 2.5MG TABLET PO PRN (01:39)
[2021-03-30] MEDS ORDERED: NALOXONE (NARCAN) HCL 4 MG/0.1 ML SPRAY NS PRN (01:39)
[2021-03-30] MEDS ORDERED: NICOTINE POLACRILEX 2 MG GUM BUC PRN (01:39)
[2021-03-30] MEDS ORDERED: guaiFENesin 200 MG/10 ML 10 ML UNIT-DOSE CUPS PO PRN (01:39)
[2021-03-30] MEDS ORDERED: ACETAMINOPHEN 325 MG TABLET (FP) PO PRN ×2 (01:39)
[2021-03-30] MEDS ORDERED: METHOCARBAMOL 500 MG TABLET PO PRN (01:39)
[2021-03-30] MEDS ORDERED: MAGNESIUM HYDROX 2400MG/30ML ORAL SUSPENSION 30 ML CUP PO PRN (01:39)
[2021-03-30] MEDS ORDERED: MENTHOL/PHENOL 1 EACH UD MM PRN (01:39)
[2021-03-30] MEDS: hydrOXYzine PAMOATE 25 MG CAPSULE (FP) PO PRN ×2 (03:10→10:33)
[2021-03-30 10:19] LABS: HEMATOCRIT 37.3 % (35.4-49); HEMOGLOBIN 12.2 GM/dL (11.7-16.9); MCH 30.3 pg (25.7-33.7); MCHC 32.8 g/dl (32.0-35.9); MEAN CELL VOLUME 92.4 fl (80-96); MEAN PLT VOLUME 9.4 fl (7.5-11.1); PLATELET COUNT 222 10^3/uL (134-434); RBC 4.04 M/mm3 (4.00-5.60); RDW 13.4 % (11.9-15.9); WHITE BLOOD COUNT 3.8 K/mm3 (4.0-10.0)
[2021-03-30 10:26] LABS: CALCIUM 8.4 mg/dL (8.5-10.1)
[2021-03-30 10:27] LABS: BLOOD UREA NITROGEN 15.1 mg/dL (7-18)
[2021-03-30 10:30] LABS: CREATININE 0.8 mg/dL (0.55-1.3)
[2021-03-30 10:31] LABS: BILIRUBIN,TOTAL 0.4 mg/dL (0.2-1)
[2021-03-30] MEDS: PRENATAL VITAMINS W/ FOLIC ACID TABLET (FP) PO SCH (10:33)
[2021-03-30] MEDS: NICOTINE 21 MG/24 HOURS TOPICAL PATCH TD SCH (10:35)
[2021-03-30 10:45] LABS: ALBUMIN 3.2 g/dl (3.4-5.0); TOT PROT 6.3 g/dl (6.4-8.2)
[2021-03-30 13:58] LABS: HIV INTERPRETATION NEGATIVE (NEGATIVE)
[2021-03-30] MEDS: MELATONIN 5 MG TABLETS PO SCH (23:04)
[2021-03-30] MEDS: THIAMINE HCL 100 MG TABLET (FP) PO SCH (23:04)
[2021-03-31] MEDS ORDERED: methaDONE HCL 10 MG TABLET (FOR DETOX USE ONLY) ONE (09:19)
[2021-03-31] MEDS: PRENATAL VITAMINS W/ FOLIC ACID TABLET (FP) PO SCH (10:11)
[2021-03-31] MEDS: hydrOXYzine PAMOATE 25 MG CAPSULE (FP) PO PRN (10:11)
[2021-03-31] MEDS: NICOTINE 21 MG/24 HOURS TOPICAL PATCH TD SCH (10:12)
[2021-03-31] MEDS: THIAMINE HCL 100 MG TABLET (FP) PO SCH (22:20)
[2021-03-31] MEDS: MELATONIN 5 MG TABLETS PO SCH (22:20)
[2021-04-01] MEDS ORDERED: methaDONE HCL 10 MG TABLET (FOR DETOX USE ONLY) PO ONE (10:00)
[2021-04-01] MEDS: NICOTINE 21 MG/24 HOURS TOPICAL PATCH TD SCH (10:25)
[2021-04-01] MEDS: hydrOXYzine PAMOATE 25 MG CAPSULE (FP) PO PRN (10:25)
[2021-04-01] MEDS: PRENATAL VITAMINS W/ FOLIC ACID TABLET (FP) PO SCH (10:25)
[2021-04-01] MEDS: THIAMINE HCL 100 MG TABLET (FP) PO SCH (22:23)
[2021-04-01] MEDS: MELATONIN 5 MG TABLETS PO SCH (22:23)
[2021-04-02] MEDS ORDERED: methaDONE HCL 10 MG TABLET (FOR DETOX USE ONLY) ONE (09:59)
[2021-04-02] MEDS: NICOTINE 21 MG/24 HOURS TOPICAL PATCH TD SCH (10:23)
[2021-04-02] MEDS: PRENATAL VITAMINS W/ FOLIC ACID TABLET (FP) PO SCH (10:23)
[2021-04-02] MEDS: MELATONIN 5 MG TABLETS PO SCH (22:37)
[2021-04-02] MEDS: THIAMINE HCL 100 MG TABLET (FP) PO SCH (22:37)
[2021-04-03] MEDS ORDERED: methaDONE HCL 10 MG TABLET (FOR DETOX USE ONLY) PO ONE (10:00)
[2021-04-03] MEDS: PRENATAL VITAMINS W/ FOLIC ACID TABLET (FP) PO SCH (10:03)
[2021-04-03] MEDS: NICOTINE 21 MG/24 HOURS TOPICAL PATCH TD SCH (10:04)
[2021-04-03] MEDS: THIAMINE HCL 100 MG TABLET (FP) PO SCH (22:33)
[2021-04-03] MEDS: MELATONIN 5 MG TABLETS PO SCH (22:33)
[2021-04-04 09:08] VITALS: BP 115/68; PULSE 76; TEMP 96.4
== END 2021-04-04 09:52 | disposition home or self-care (01) | DRG 773 ==
LOC: YASAS 19:00 → Y3N 03-30 02:23
PROVIDERS: ADMIT Allergy & Immunology; ATTEND Allergy & Immunology
PROC: HZ2ZZZZ Detoxification Services for Substance Abuse Treatment (ICD-10-PCS; principal; 2021-03-30)
DX: F11.23 Opioid dependence with withdrawal (principal); F14.20 Cocaine dependence, uncomplicated; F17.210 Nicotine dependence, cigarettes, uncomplicated; F19.24 Other psychoactive substance dependence with psychoactive substance-induced mood disorder; I10 Essential (primary) hypertension; J44.9 Chronic obstructive pulmonary disease, unspecified; B18.2 Chronic viral hepatitis C; Z87.442 Personal history of urinary calculi; Z87.19 Personal history of other diseases of the digestive system; Z91.013 Allergy to seafood
CPT/HCPCS: 36415; 80053; 82550; 82553; 84484; 85027; 86780; 87389; 93005; 93010; 99282-25; C9803; Q0162; U0003; U0005

== ENCOUNTER 2021-05-14 09:30 | Inpatient (IN) | payer OTHER ==
[2021-05-14 09:49] VITALS: BMI 20.6
[2021-05-14] MEDS ORDERED: MENTHOL/PHENOL 1 EACH UD MM PRN (10:29)
[2021-05-14] MEDS ORDERED: MAG HYDROX/AL HYDROX/SIMETH 30 ML UNIT-DOSE CUP PO PRN (10:29)
[2021-05-14] MEDS ORDERED: IBUPROFEN 400 MG TABLET (FP) PO PRN (10:29)
[2021-05-14] MEDS ORDERED: NICOTINE 10 MG CARTRIDGE (INHALER) IH PRN (10:29)
[2021-05-14] MEDS ORDERED: MAGNESIUM CITRATE 300 ML BOTTLE PO PRN (10:29)
[2021-05-14] MEDS ORDERED: ACETAMINOPHEN 325 MG TABLET (FP) PO PRN ×2 (10:29)
[2021-05-14] MEDS ORDERED: MAGNESIUM HYDROX 2400MG/30ML ORAL SUSPENSION 30 ML CUP PO PRN (10:29)
[2021-05-14] MEDS ORDERED: ONDANSETRON *ODT* 4 MG TABLET SL PRN (10:29)
[2021-05-14] MEDS ORDERED: cloNIDine HCL 0.1 MG TABLET PO PRN (10:29)
[2021-05-14] MEDS ORDERED: BISMUTH SUBSALICYLATE 524 MG/30 ML PO PRN (10:29)
[2021-05-14] MEDS ORDERED: NICOTINE POLACRILEX 2 MG GUM BUC PRN (10:29)
[2021-05-14] MEDS ORDERED: methaDONE HCL 10 MG TABLET (FOR DETOX USE ONLY) ONE (12:05)
[2021-05-14] MEDS ORDERED: methaDONE HCL 10 MG TABLET (FOR DETOX USE ONLY) PO ONE (12:15)
[2021-05-14] MEDS ORDERED: hydrOXYzine PAMOATE 25 MG CAPSULE (FP) PO SCH (14:00)
[2021-05-14 15:48] LABS: HEMATOCRIT 39.8 % (35.4-49); HEMOGLOBIN 13.3 GM/dL (11.7-16.9); MCH 30.7 pg (25.7-33.7); MCHC 33.5 g/dl (32.0-35.9); MEAN CELL VOLUME 91.9 fl (80-96); MEAN PLT VOLUME 9.4 fl (7.5-11.1); PLATELET COUNT 220 10^3/uL (134-434); RBC 4.33 M/mm3 (4.00-5.60); RDW 14.1 % (11.9-15.9); WHITE BLOOD COUNT 5.6 K/mm3 (4.0-10.0)
[2021-05-14 15:53] LABS: ALBUMIN 3.9 g/dl (3.4-5.0); BLOOD UREA NITROGEN 22.6 mg/dL (7-18); CALCIUM 9.1 mg/dL (8.5-10.1)
[2021-05-14 15:57] LABS: CREATININE 0.9 mg/dL (0.55-1.3)
[2021-05-14 15:59] LABS: BILIRUBIN,TOTAL 0.8 mg/dL (0.2-1); TOT PROT 7.7 g/dl (6.4-8.2)
[2021-05-14 16:49] LABS: HIV INTERPRETATION NEGATIVE (NEGATIVE)
[2021-05-14] MEDS: hydrOXYzine PAMOATE 25 MG CAPSULE (FP) PO PRN (22:52)
[2021-05-14] MEDS: MELATONIN 5 MG TABLETS PO SCH (22:52)
[2021-05-14] MEDS: THIAMINE HCL 100 MG TABLET (FP) PO SCH (22:52)
[2021-05-15] MEDS ORDERED: methaDONE HCL 10 MG TABLET (FOR DETOX USE ONLY) ONE (09:40)
[2021-05-15] MEDS: PRENATAL VITAMINS W/ FOLIC ACID TABLET (FP) PO SCH (09:55)
[2021-05-15] MEDS: NICOTINE 21 MG/24 HOURS TOPICAL PATCH TD SCH (09:56)
[2021-05-15] MEDS: MELATONIN 5 MG TABLETS PO SCH (22:50)
[2021-05-15] MEDS: THIAMINE HCL 100 MG TABLET (FP) PO SCH (22:50)
[2021-05-15] MEDS: hydrOXYzine PAMOATE 25 MG CAPSULE (FP) PO PRN (22:50)
[2021-05-16] MEDS ORDERED: methaDONE HCL 10 MG TABLET (FOR DETOX USE ONLY) PO ONE (10:00)
[2021-05-16] MEDS: NICOTINE 21 MG/24 HOURS TOPICAL PATCH TD SCH (10:43)
[2021-05-16] MEDS: PRENATAL VITAMINS W/ FOLIC ACID TABLET (FP) PO SCH (10:43)
[2021-05-16] MEDS: METHOCARBAMOL 500 MG TABLET PO PRN (10:43)
[2021-05-16] MEDS: THIAMINE HCL 100 MG TABLET (FP) PO SCH (23:12)
[2021-05-16] MEDS: MELATONIN 5 MG TABLETS PO SCH (23:12)
[2021-05-17] MEDS ORDERED: methaDONE HCL 10 MG TABLET (FOR DETOX USE ONLY) ONE (09:35)
[2021-05-17] MEDS: PRENATAL VITAMINS W/ FOLIC ACID TABLET (FP) PO SCH (10:18)
[2021-05-17] MEDS: METHOCARBAMOL 500 MG TABLET PO PRN (10:19)
[2021-05-17] MEDS: NICOTINE 21 MG/24 HOURS TOPICAL PATCH TD SCH (10:20)
[2021-05-17] MEDS: THIAMINE HCL 100 MG TABLET (FP) PO SCH (22:49)
[2021-05-17] MEDS: MELATONIN 5 MG TABLETS PO SCH (22:49)
[2021-05-18] MEDS ORDERED: methaDONE HCL 10 MG TABLET (FOR DETOX USE ONLY) PO ONE (10:00)
[2021-05-18] MEDS: PRENATAL VITAMINS W/ FOLIC ACID TABLET (FP) PO SCH (10:12)
[2021-05-18] MEDS: NICOTINE 21 MG/24 HOURS TOPICAL PATCH TD SCH (10:12)
[2021-05-18] MEDS: METHOCARBAMOL 500 MG TABLET PO PRN ×2 (10:12→22:06)
[2021-05-18] MEDS: THIAMINE HCL 100 MG TABLET (FP) PO SCH (22:06)
[2021-05-18] MEDS: MELATONIN 5 MG TABLETS PO SCH (22:06)
[2021-05-19 06:19] VITALS: BP 103/60; PULSE 61; TEMP 96.9
== END 2021-05-19 09:00 | disposition home or self-care (01) | DRG 773 ==
LOC: YASAS 09:30 → Y3N 12:13
PROVIDERS: ADMIT Allergy & Immunology; ATTEND Allergy & Immunology
PROC: HZ2ZZZZ Detoxification Services for Substance Abuse Treatment (ICD-10-PCS; principal; 2021-05-14)
DX: F11.23 Opioid dependence with withdrawal (principal); F14.10 Cocaine abuse, uncomplicated; F17.210 Nicotine dependence, cigarettes, uncomplicated; F41.8 Other specified anxiety disorders; B18.2 Chronic viral hepatitis C; Z87.442 Personal history of urinary calculi; Z98.890 Other specified postprocedural states; Z59.0 Homelessness
CPT/HCPCS: 36415; 80053; 85027; 86780; 87389; C9803; J0735; U0003; U0005

== ENCOUNTER 2021-10-01 15:27 | Inpatient (IN) | payer OTHER ==
[2021-10-01] MEDS ORDERED: P-EPHED 60MG/TRIPROLIDI 2.5MG TABLET PO PRN (19:57)
[2021-10-01] MEDS ORDERED: IBUPROFEN 400 MG TABLET (FP) PO PRN (19:57)
[2021-10-01] MEDS ORDERED: MENTHOL/PHENOL 1 EACH UD MM PRN (19:57)
[2021-10-01] MEDS ORDERED: MAGNESIUM HYDROX 2400MG/30ML ORAL SUSPENSION 30 ML CUP PO PRN (19:57)
[2021-10-01] MEDS ORDERED: MAG HYDROX/AL HYDROX/SIMETH 30 ML UNIT-DOSE CUP PO PRN (19:57)
[2021-10-01] MEDS ORDERED: cloNIDine HCL 0.1 MG TABLET PO PRN (19:57)
[2021-10-01] MEDS ORDERED: NALOXONE HCL 0.4 MG/ML VIAL IM PRN (19:57)
[2021-10-01] MEDS ORDERED: BISMUTH SUBSALICYLATE 524 MG/30 ML PO PRN (19:57)
[2021-10-01] MEDS ORDERED: ACETAMINOPHEN 325 MG TABLET (FP) PO PRN ×2 (19:57)
[2021-10-01] MEDS ORDERED: NALOXONE (NARCAN) HCL 4 MG/0.1 ML SPRAY NS PRN (19:57)
[2021-10-01] MEDS ORDERED: methaDONE HCL 10 MG TABLET (FOR DETOX USE ONLY) PO ONE (19:57)
[2021-10-01] MEDS ORDERED: guaiFENesin 200 MG/10 ML 10 ML UNIT-DOSE CUPS PO PRN (19:57)
[2021-10-01] MEDS ORDERED: MAGNESIUM CITRATE 300 ML BOTTLE PO PRN (19:57)
[2021-10-01] MEDS ORDERED: DICYCLOMINE HCL 10 MG CAPSULE PO PRN (19:57)
[2021-10-01] MEDS ORDERED: NICOTINE POLACRILEX 2 MG GUM BUC PRN (19:57)
[2021-10-01] MEDS ORDERED: MELATONIN 5 MG TABLETS PO SCH (22:00)
[2021-10-01 22:40] VITALS: BMI 20.9
[2021-10-02] MEDS: THIAMINE HCL 100 MG TABLET (FP) PO SCH ×2 (00:05→21:56)
[2021-10-02] MEDS ORDERED: methaDONE HCL 10 MG TABLET (FOR DETOX USE ONLY) ONE (09:02)
[2021-10-02] MEDS: PRENATAL VITAMINS W/ FOLIC ACID TABLET (FP) PO SCH (10:14)
[2021-10-02] MEDS: METHOCARBAMOL 500 MG TABLET PO PRN (10:14)
[2021-10-02] MEDS: NICOTINE 14 MG/24 HOURS TOPICAL PATCH TD SCH (10:19)
[2021-10-02] MEDS ORDERED: QUEtiapine FUMARATE 50 MG TABLET PO PRN (10:51)
[2021-10-02 11:52] LABS: HEMATOCRIT 42.8 % (35.4-49); HEMOGLOBIN 14.3 GM/dL (11.7-16.9); MCH 30.1 pg (25.7-33.7); MCHC 33.4 g/dl (32.0-35.9); MEAN CELL VOLUME 90.3 fl (80-96); MEAN PLT VOLUME 9.2 fl (7.5-11.1); PLATELET COUNT 181 10^3/uL (134-434); RBC 4.74 M/mm3 (4.00-5.60); RDW 13.4 % (11.9-15.9); WHITE BLOOD COUNT 3.4 K/mm3 (4.0-10.0)
[2021-10-02 12:37] LABS: ALBUMIN 3.6 g/dl (3.4-5.0); BLOOD UREA NITROGEN 16.5 mg/dL (7-18); CALCIUM 9.3 mg/dL (8.5-10.1)
[2021-10-02 12:41] LABS: BILIRUBIN,TOTAL 0.8 mg/dL (0.2-1)
[2021-10-02 12:42] LABS: TOT PROT 7.2 g/dl (6.4-8.2)
[2021-10-02] MEDS: clonazePAM 0.5 MG ODT TABLETS SL PRN (21:56)
[2021-10-03] MEDS ORDERED: methaDONE HCL 10 MG TABLET (FOR DETOX USE ONLY) PO ONE (10:00)
[2021-10-03] MEDS: NICOTINE 14 MG/24 HOURS TOPICAL PATCH TD SCH (11:10)
[2021-10-03] MEDS: PRENATAL VITAMINS W/ FOLIC ACID TABLET (FP) PO SCH (11:10)
[2021-10-03] MEDS: METHOCARBAMOL 500 MG TABLET PO PRN (11:10)
[2021-10-03] MEDS: THIAMINE HCL 100 MG TABLET (FP) PO SCH (23:00)
[2021-10-03] MEDS: clonazePAM 0.5 MG ODT TABLETS SL PRN (23:05)
[2021-10-04] MEDS ORDERED: methaDONE HCL 10 MG TABLET (FOR DETOX USE ONLY) ONE (09:07)
[2021-10-04 09:18] VITALS: TEMP 96.9
[2021-10-04] MEDS: PRENATAL VITAMINS W/ FOLIC ACID TABLET (FP) PO SCH (10:59)
[2021-10-04] MEDS: METHOCARBAMOL 500 MG TABLET PO PRN (10:59)
[2021-10-04] MEDS: NICOTINE 14 MG/24 HOURS TOPICAL PATCH TD SCH (11:00)
[2021-10-04] MEDS: clonazePAM 0.5 MG ODT TABLETS SL PRN (11:00)
[2021-10-04 11:22] VITALS: BP 105/59; PULSE 94
[2021-10-05] MEDS ORDERED: methaDONE HCL 10 MG TABLET (FOR DETOX USE ONLY) PO ONE (10:00)
== END 2021-10-04 12:03 | disposition left against medical advice (07) | DRG 770 ==
LOC: YASAS 15:27 → UNDOADMIN 21:38 → Y3N 21:38 → Y6N 22:23
PROVIDERS: ADMIT Allergy & Immunology; ATTEND Allergy & Immunology
PROC: HZ2ZZZZ Detoxification Services for Substance Abuse Treatment (ICD-10-PCS; principal; 2021-10-01)
DX: F11.23 Opioid dependence with withdrawal (principal); F14.20 Cocaine dependence, uncomplicated; F17.210 Nicotine dependence, cigarettes, uncomplicated; F19.24 Other psychoactive substance dependence with psychoactive substance-induced mood disorder; F41.8 Other specified anxiety disorders; F32.A Depression, unspecified; U07.1 COVID-19; B18.2 Chronic viral hepatitis C; Z87.442 Personal history of urinary calculi; Z56.0 Unemployment, unspecified; Z59.00 Homelessness unspecified
CPT/HCPCS: 36415; 80053; 85027; 86780; C9803; U0003; U0005

== ENCOUNTER 2021-11-13 23:21 | Inpatient (IN) | payer OTHER ==
[2021-11-14] MEDS ORDERED: VANCOMYCIN 1 GM PREMIX - 1 GM/200 ML BAG IVPB ONE (01:28)
[2021-11-14] MEDS ORDERED: PIPERACILLIN/TAZOB 4.5 GM 4.5 GM in DEXTROSE 5%-WATER 100 ML IVPB ONE (01:28)
[2021-11-14 01:30] LABS: BASO % 0.3 % (0-2.0); EOS % 0.7 % (0-4.5); HEMATOCRIT 37.1 % (35.4-49); HEMOGLOBIN 12.6 GM/dL (11.7-16.9); LYMPH % 12.3 % (8-40); MCH 30.5 pg (25.7-33.7); MEAN CELL VOLUME 89.8 fl (80-96); MEAN PLT VOLUME 8.6 fl (7.5-11.1); NEUT % 77.7 % (42.8-82.8); PLATELET COUNT 162 10^3/uL (134-434); RBC 4.13 M/mm3 (4.00-5.60); RDW 13.6 % (11.9-15.9); WHITE BLOOD COUNT 7.2 K/mm3 (4.0-10.0)
[2021-11-14] MEDS ORDERED: DEXTROSE 5% IVPB ONE (01:32)
[2021-11-14] MEDS ORDERED: WATER IVPB ONE (01:32)
[2021-11-14] MEDS ORDERED: PIPERACILLIN/TAZOB 4.5 GM 4.5 GM/100 ML BAG IVPB ONE (01:32)
[2021-11-14] MEDS ORDERED: VANCOMYCIN IVPB ONE (01:32)
[2021-11-14 01:37] LABS: INR 1.15 (0.83-1.09); PROTHROMBIN TIME (PATIENT) 13.2 SEC (9.7-13.0)
[2021-11-14 01:57] LABS: CALCIUM 8.5 mg/dL (8.5-10.1)
[2021-11-14 01:58] LABS: ALBUMIN 3.5 g/dl (3.4-5.0); BLOOD UREA NITROGEN 14.2 mg/dL (7-18)
[2021-11-14 02:02] LABS: BILIRUBIN,TOTAL 0.7 mg/dL (0.2-1); TOT PROT 7.7 g/dl (6.4-8.2)
[2021-11-14 02:40] LABS: ERYTHROCYTE SEDIMENTATION RATE 22 mm/hr (0-20)
[2021-11-14] MEDS ORDERED: cloNIDine HCL 0.1 MG TABLET PO PRN (04:04)
[2021-11-14] MEDS ORDERED: methaDONE HCL 10 MG TABLET PO ONE (04:04)
[2021-11-14] MEDS ORDERED: methaDONE HCL 10 MG TABLET ONE ×2 (04:48→09:09)
[2021-11-14 06:26] LABS: BASO % 0.4 % (0-2.0); HEMATOCRIT 34.7 % (35.4-49); HEMOGLOBIN 11.5 GM/dL (11.7-16.9); MCH 29.8 pg (25.7-33.7); MCHC 33.3 g/dl (32.0-35.9); MEAN CELL VOLUME 89.5 fl (80-96); MEAN PLT VOLUME 8.8 fl (7.5-11.1); MONO % 10.1 % (3.8-10.2); NEUT % 75.5 % (42.8-82.8); PLATELET COUNT 186 10^3/uL (134-434); RBC 3.87 M/mm3 (4.00-5.60); RDW 13.8 % (11.9-15.9); WHITE BLOOD COUNT 7.7 K/mm3 (4.0-10.0)
[2021-11-14 06:36] LABS: BLOOD UREA NITROGEN 11.3 mg/dL (7-18); CALCIUM 8.4 mg/dL (8.5-10.1); MAGNESIUM 1.7 mg/dL (1.8-2.4)
[2021-11-14 06:40] LABS: BILIRUBIN,TOTAL 0.8 mg/dL (0.2-1); CREATININE 0.9 mg/dL (0.55-1.3); PHOSPHOROUS 2.4 mg/dL (2.5-4.9); TOT PROT 6.6 g/dl (6.4-8.2)
[2021-11-14] MEDS ORDERED: PIPERACILLIN/TAZOB 3.375 GM 3.375 GM in DEXTROSE 5%-WATER - 50 ML IVPB SCH (09:00)
[2021-11-14] MEDS ORDERED: PIPERACILLIN/TAZOB 3.375 GM 3.375 GM/50 ML BAG IVPB ONE (09:10)
[2021-11-14] MEDS ORDERED: ENOXAPARIN NA (PORCINE) 40 MG/0.4 ML DISP.SYRIN SQ ONE (09:21)
[2021-11-14] MEDS: ENOXAPARIN NA (PORCINE) 40 MG/0.4 ML DISP.SYRIN SQ SCH (09:27)
[2021-11-14] MEDS ORDERED: VANCOMYCIN 1,000 MG in DEXTROSE 5%-WATER - 250 ML IVPB SCH (10:00)
[2021-11-14] MEDS ORDERED: VANCOMYCIN 1 GM in D5W (PRE-DOCKED) 1,000 MG/250 ML IVPB SCH (10:00)
[2021-11-14] MEDS ORDERED: DEXTROSE 5%-WATER - 50 ML IVPB ONE ×2 (15:42→20:58)
[2021-11-14] MEDS ORDERED: PIPERACILLIN/TAZOBACTAM 3.375 GM VIAL IVPB ONE ×2 (15:42→20:58)
[2021-11-14] MEDS: PIPERACILLIN/TAZOB 3.375 GM 3.375 GM in DEXTROSE 5%-WATER - 50 ML IVPB SCH ×2 (15:44→21:07)
[2021-11-14 19:22] VITALS: BMI 20.2
[2021-11-14] MEDS: VANCOMYCIN 1 GRAM (PRE-DOCKED) 1,000 MG/250 ML BAG IVPB SCH (21:43)
[2021-11-15] MEDS ORDERED: DEXTROSE 5%-WATER - 50 ML IVPB ONE ×4 (02:09→20:56)
[2021-11-15] MEDS ORDERED: PIPERACILLIN/TAZOBACTAM 3.375 GM VIAL IVPB ONE ×4 (02:09→20:56)
[2021-11-15] MEDS: PIPERACILLIN/TAZOB 3.375 GM 3.375 GM in DEXTROSE 5%-WATER - 50 ML IVPB SCH ×4 (02:39→21:12)
[2021-11-15 08:37] LABS: BASO % 0.9 % (0-2.0); EOS % 2.7 % (0-4.5); HEMATOCRIT 36.6 % (35.4-49); HEMOGLOBIN 12.4 GM/dL (11.7-16.9); LYMPH % 15.6 % (8-40); MCH 30.1 pg (25.7-33.7); MCHC 33.8 g/dl (32.0-35.9); MEAN CELL VOLUME 89.2 fl (80-96); MEAN PLT VOLUME 8.6 fl (7.5-11.1); MONO % 10.5 % (3.8-10.2); NEUT % 70.3 % (42.8-82.8); PLATELET COUNT 198 10^3/uL (134-434); RBC 4.11 M/mm3 (4.00-5.60); RDW 13.7 % (11.9-15.9); WHITE BLOOD COUNT 5.6 K/mm3 (4.0-10.0)
[2021-11-15 09:06] LABS: ALBUMIN 2.9 g/dl (3.4-5.0); BLOOD UREA NITROGEN 10.8 mg/dL (7-18); CALCIUM 8.5 mg/dL (8.5-10.1)
[2021-11-15 09:11] LABS: BILIRUBIN,TOTAL 0.8 mg/dL (0.2-1); TOT PROT 6.9 g/dl (6.4-8.2)
[2021-11-15] MEDS ORDERED: methaDONE HCL 10 MG TABLET ONE (09:14)
[2021-11-15] MEDS: ENOXAPARIN NA (PORCINE) 40 MG/0.4 ML DISP.SYRIN SQ SCH (09:18)
[2021-11-15] MEDS: VANCOMYCIN 1 GRAM (PRE-DOCKED) 1,000 MG/250 ML BAG IVPB SCH ×2 (09:19→21:13)
[2021-11-15] MEDS: QUEtiapine FUMARATE 25 MG TABLET PO SCH (21:12)
[2021-11-16] MEDS ORDERED: DEXTROSE 5%-WATER - 50 ML IVPB ONE ×4 (02:08→21:29)
[2021-11-16] MEDS ORDERED: PIPERACILLIN/TAZOBACTAM 3.375 GM VIAL IVPB ONE ×4 (02:08→21:29)
[2021-11-16] MEDS: PIPERACILLIN/TAZOB 3.375 GM 3.375 GM in DEXTROSE 5%-WATER - 50 ML IVPB SCH ×5 (03:02→21:30)
[2021-11-16] MEDS: methaDONE HCL 10 MG TABLET PO ONE ×2 (08:48→10:13)
[2021-11-16] MEDS: SODIUM CHLORIDE 1,000 ML IV SCH (08:54)
[2021-11-16] MEDS: ENOXAPARIN NA (PORCINE) 40 MG/0.4 ML DISP.SYRIN SQ SCH (09:42)
[2021-11-16 11:28] LABS: CALCIUM 9.4 mg/dL (8.5-10.1)
[2021-11-16 11:29] LABS: BLOOD UREA NITROGEN 11.1 mg/dL (7-18); MAGNESIUM 2.5 mg/dL (1.8-2.4)
[2021-11-16 11:32] LABS: PHOSPHOROUS 3.1 mg/dL (2.5-4.9)
[2021-11-16] MEDS: VANCOMYCIN 1 GRAM (PRE-DOCKED) 1,000 MG/250 ML BAG IVPB SCH ×2 (12:36→22:35)
[2021-11-16 17:47] LABS: HIV INTERPRETATION NEGATIVE (NEGATIVE)
[2021-11-16] MEDS: QUEtiapine FUMARATE 25 MG TABLET PO SCH (21:30)
[2021-11-16 23:16] VITALS: TEMP 98.1
[2021-11-17] MEDS ORDERED: DEXTROSE 5%-WATER - 50 ML IVPB ONE ×2 (02:14→09:36)
[2021-11-17] MEDS ORDERED: PIPERACILLIN/TAZOBACTAM 3.375 GM VIAL IVPB ONE ×2 (02:14→09:36)
[2021-11-17] MEDS: PIPERACILLIN/TAZOB 3.375 GM 3.375 GM in DEXTROSE 5%-WATER - 50 ML IVPB SCH ×2 (02:20→09:27)
[2021-11-17 06:02] VITALS: BP 98/55; PULSE 66
[2021-11-17] MEDS: ENOXAPARIN NA (PORCINE) 40 MG/0.4 ML DISP.SYRIN SQ SCH (10:08)
[2021-11-17] MEDS ORDERED: methaDONE HCL 10 MG TABLET ONE (10:13)
[2021-11-17] MEDS: SODIUM CHLORIDE 1,000 ML IV SCH (10:15)
[2021-11-17] MEDS: VANCOMYCIN 1 GRAM (PRE-DOCKED) 1,000 MG/250 ML BAG IVPB SCH (10:53)
[2021-11-17 12:42] LABS: BASO % 1.2 % (0-2.0); EOS % 5.2 % (0-4.5); MCH 30.1 pg (25.7-33.7); MCHC 33.4 g/dl (32.0-35.9); MEAN CELL VOLUME 90.2 fl (80-96); MEAN PLT VOLUME 8.5 fl (7.5-11.1); MONO % 10.7 % (3.8-10.2); NEUT % 54.9 % (42.8-82.8); PLATELET COUNT 312 10^3/uL (134-434); RBC 4.32 M/mm3 (4.00-5.60); RDW 13.7 % (11.9-15.9); WHITE BLOOD COUNT 4.9 K/mm3 (4.0-10.0)
[2021-11-17] MEDS ORDERED: BACITRACIN 15 GM TUBE TOPICAL OINTMENT TP SCH (12:45)
[2021-11-17 13:04] LABS: BLOOD UREA NITROGEN 13.4 mg/dL (7-18); CALCIUM 9.1 mg/dL (8.5-10.1)
[2021-11-17 13:08] LABS: CREATININE 1.2 mg/dL (0.55-1.3)
[2021-11-18] MEDS ORDERED: methaDONE HCL 10 MG TABLET PO ONE (10:00)
== END 2021-11-17 13:45 | disposition home or self-care (01) | DRG 383 ==
LOC: JER 23:21 → JERBED 11-14 02:15 → J5S 11-14 09:49 → J6S 11-16 14:46
PROVIDERS: ADMIT Internal Medicine
PROC: 0S9D3ZZ Drainage of Left Knee Joint, Percutaneous Approach (ICD-10-PCS; principal; 2021-11-14)
DX: L02.416 Cutaneous abscess of left lower limb (principal); J44.9 Chronic obstructive pulmonary disease, unspecified; B19.20 Unspecified viral hepatitis C without hepatic coma; Z86.16 Personal history of COVID-19; F11.23 Opioid dependence with withdrawal; F17.200 Nicotine dependence, unspecified, uncomplicated; F39 Unspecified mood [affective] disorder
CPT/HCPCS: 36415; 73560-TC-LT-FY; 80048; 80053; 83605; 83735; 84100; 85025; 85610; 85651; 86140; 87040; 87070; 87186; 87205; 87389; 93005; 93010; 93306-TC; 97116-GP; 97161-GP; 99285-25; C9803; G0480; U0003; U0005

== ENCOUNTER 2022-03-09 00:41 | Inpatient (IN) | payer OTHER ==
[2022-03-09] MEDS ORDERED: MAGNESIUM HYDROX 2400MG/30ML ORAL SUSPENSION 30 ML CUP PO PRN (01:25)
[2022-03-09] MEDS ORDERED: ONDANSETRON *ODT* 4 MG TABLET SL PRN (01:25)
[2022-03-09] MEDS ORDERED: NICOTINE 10 MG CARTRIDGE (INHALER) IH PRN (01:25)
[2022-03-09] MEDS ORDERED: LOPERAMIDE HCL 2 MG CAPSULE PO PRN (01:25)
[2022-03-09] MEDS ORDERED: IBUPROFEN 600 MG TABLET (FP) PO PRN (01:25)
[2022-03-09] MEDS ORDERED: BENZOCAINE/MENTHOL (CHLORASEPTIC ) LOZENGE MM PRN (01:25)
[2022-03-09] MEDS ORDERED: ACETAMINOPHEN 325 MG TABLET (FP) PO PRN ×2 (01:25)
[2022-03-09] MEDS ORDERED: MAGNESIUM CITRATE 300 ML BOTTLE PO PRN (01:25)
[2022-03-09] MEDS ORDERED: IBUPROFEN 400 MG TABLET (FP) PO PRN (01:25)
[2022-03-09] MEDS ORDERED: NICOTINE POLACRILEX 2 MG GUM BUC PRN (01:25)
[2022-03-09] MEDS ORDERED: P-EPHED 60MG/TRIPROLIDI 2.5MG TABLET PO PRN (01:25)
[2022-03-09] MEDS ORDERED: DICYCLOMINE HCL 10 MG CAPSULE PO PRN (01:25)
[2022-03-09] MEDS ORDERED: guaiFENesin 200 MG/10 ML 10 ML UNIT-DOSE CUPS PO PRN (01:25)
[2022-03-09] MEDS ORDERED: BISMUTH SUBSALICYLATE 524 MG/30 ML PO PRN (01:25)
[2022-03-09] MEDS ORDERED: MAG HYDROX/AL HYDROX/SIMETH 30 ML UNIT-DOSE CUP PO PRN (01:25)
[2022-03-09] MEDS ORDERED: methaDONE HCL 10 MG TABLET (FOR DETOX USE ONLY) PO ONE (01:27)
[2022-03-09] MEDS ORDERED: cloNIDine HCL 0.1 MG TABLET PO PRN (01:27)
[2022-03-09] MEDS ORDERED: TRIMETHOBENZAMIDE HCL 200MG/2ML INJ IM PRN (01:29)
[2022-03-09] MEDS ORDERED: QUEtiapine FUMARATE 25 MG TABLET PO ONE (01:33)
[2022-03-09] MEDS ORDERED: methaDONE HCL 10 MG TABLET (FOR DETOX USE ONLY) ONE (09:01)
[2022-03-09] MEDS: PRENATAL VITAMINS W/ FOLIC ACID TABLET (FP) PO SCH (10:15)
[2022-03-09] MEDS: hydrOXYzine PAMOATE 25 MG CAPSULE (FP) PO PRN (10:15)
[2022-03-09] MEDS: ALBUTEROL SO4 HFA INHALER IH PRN (10:17)
[2022-03-09 13:17] LABS: HEMATOCRIT 47.3 % (35.4-49); HEMOGLOBIN 16.1 GM/dL (11.7-16.9); MCH 30.4 pg (25.7-33.7); MEAN CELL VOLUME 89.4 fl (80-96); PLATELET COUNT 314 10^3/uL (134-434); RBC 5.29 M/mm3 (4.00-5.60); RDW 13.9 % (11.9-15.9); WHITE BLOOD COUNT 13.7 K/mm3 (4.0-10.0)
[2022-03-09 13:53] LABS: ALBUMIN 4.2 g/dl (3.4-5.0); BLOOD UREA NITROGEN 41.5 mg/dL (7-18); CALCIUM 9.9 mg/dL (8.5-10.1)
[2022-03-09 13:56] LABS: CREATININE 2.1 mg/dL (0.55-1.3)
[2022-03-09 13:58] LABS: BILIRUBIN,TOTAL 0.5 mg/dL (0.2-1); TOT PROT 8.7 g/dl (6.4-8.2)
[2022-03-09] MEDS: diazePAM 5 MG TABLET PO PRN ×3 (15:21→23:52)
[2022-03-09] MEDS: MELATONIN 5 MG TABLETS PO PRN (22:40)
[2022-03-09] MEDS: QUEtiapine FUMARATE 25 MG TABLET PO SCH (22:43)
[2022-03-09] MEDS: THIAMINE HCL 100 MG TABLET (FP) PO SCH (22:44)
[2022-03-10] MEDS: diazePAM 5 MG TABLET PO PRN ×3 (05:31→22:04)
[2022-03-10] MEDS ORDERED: methaDONE HCL 10 MG TABLET (FOR DETOX USE ONLY) PO ONE (10:00)
[2022-03-10] MEDS: PRENATAL VITAMINS W/ FOLIC ACID TABLET (FP) PO SCH (10:27)
[2022-03-10 12:02] LABS: BASO % 0.3 % (0-2.0); EOS % 0.7 % (0-4.5); HEMATOCRIT 46.8 % (35.4-49); HEMOGLOBIN 15.8 GM/dL (11.7-16.9); LYMPH % 22.3 % (8-40); MCH 30.1 pg (25.7-33.7); MCHC 33.7 g/dl (32.0-35.9); MEAN CELL VOLUME 89.3 fl (80-96); MEAN PLT VOLUME 8.9 fl (7.5-11.1); MONO % 7.2 % (3.8-10.2); NEUT % 69.5 % (42.8-82.8); PLATELET COUNT 283 10^3/uL (134-434); RBC 5.24 M/mm3 (4.00-5.60); RDW 13.7 % (11.9-15.9); WHITE BLOOD COUNT 7.9 K/mm3 (4.0-10.0)
[2022-03-10 12:11] LABS: ALBUMIN 3.7 g/dl (3.4-5.0)
[2022-03-10 12:12] LABS: CALCIUM 9.6 mg/dL (8.5-10.1)
[2022-03-10 12:13] LABS: CREATININE 1.1 mg/dL (0.55-1.3)
[2022-03-10 12:16] LABS: BILIRUBIN,TOTAL 0.5 mg/dL (0.2-1); TOT PROT 7.8 g/dl (6.4-8.2)
[2022-03-10 13:38] LABS: ANISOCYTOSIS 0; HELMET CELLS 0; HOWELL-JOLLY BODIES 0; MACROCYTOSIS 0; OVALOCYTE 0; ROULEAU 0; SICKELED CELLS 0; TARGET CELLS 0; TEAR DROP CELLS 0; TOXIC GRANULATION 0
[2022-03-10] MEDS: METHOCARBAMOL 500 MG TABLET PO PRN (15:37)
[2022-03-10] MEDS: ALBUTEROL SO4 HFA INHALER IH PRN (20:50)
[2022-03-10] MEDS: THIAMINE HCL 100 MG TABLET (FP) PO SCH (22:04)
[2022-03-10] MEDS: hydrOXYzine PAMOATE 25 MG CAPSULE (FP) PO PRN (22:04)
[2022-03-10] MEDS: MELATONIN 5 MG TABLETS PO PRN (22:04)
[2022-03-10] MEDS: QUEtiapine FUMARATE 25 MG TABLET PO SCH (22:04)
[2022-03-11] MEDS: diazePAM 5 MG TABLET PO PRN ×3 (07:14→22:15)
[2022-03-11] MEDS ORDERED: methaDONE HCL 10 MG TABLET (FOR DETOX USE ONLY) ONE (09:04)
[2022-03-11] MEDS: PRENATAL VITAMINS W/ FOLIC ACID TABLET (FP) PO SCH (09:38)
[2022-03-11] MEDS: METHOCARBAMOL 500 MG TABLET PO PRN (20:53)
[2022-03-11] MEDS: QUEtiapine FUMARATE 25 MG TABLET PO SCH (22:16)
[2022-03-11] MEDS: MELATONIN 5 MG TABLETS PO PRN (22:16)
[2022-03-11] MEDS: THIAMINE HCL 100 MG TABLET (FP) PO SCH (22:16)
[2022-03-11] MEDS: hydrOXYzine PAMOATE 25 MG CAPSULE (FP) PO PRN (22:16)
[2022-03-12 00:50] LABS: EPI CELLS 5 /uL (0-25.1); HYALINE CASTS 1 /uL (0-3.1); PH,URINE 5.5 (5.0-8.0); URINE APPEARANCE TURBID; URINE BACTERIA 1 /uL (0-1359); URINE BILIRUBIN NEGATIVE (NEGATIVE); URINE COLOR YELLOW; URINE GLUCOSE (UA) NEGATIVE (NEGATIVE); URINE KETONE TRACE (NEGATIVE); URINE LEUK ESTERASE TRACE (NEGATIVE); URINE NITRITE NEGATIVE (NEGATIVE); URINE PROTEIN 1+ (NEGATIVE); URINE RBC 1529 /uL (0-23.9); URINE UROBILINOGEN 0.2 mg/dL (0.2-1.0); URINE WBC 15 /uL (0-25.8)
[2022-03-12] MEDS: hydrOXYzine PAMOATE 25 MG CAPSULE (FP) PO PRN ×2 (06:15→17:41)
[2022-03-12] MEDS: METHOCARBAMOL 500 MG TABLET PO PRN ×3 (06:15→23:26)
[2022-03-12] MEDS: diazePAM 5 MG TABLET PO PRN ×2 (06:15→11:09)
[2022-03-12] MEDS ORDERED: methaDONE HCL 10 MG TABLET (FOR DETOX USE ONLY) PO ONE (10:00)
[2022-03-12] MEDS: PRENATAL VITAMINS W/ FOLIC ACID TABLET (FP) PO SCH (11:07)
[2022-03-12] MEDS: THIAMINE HCL 100 MG TABLET (FP) PO SCH (22:11)
[2022-03-12] MEDS: QUEtiapine FUMARATE 25 MG TABLET PO SCH (22:11)
[2022-03-12] MEDS: MELATONIN 5 MG TABLETS PO PRN (22:12)
[2022-03-12] MEDS: ALBUTEROL SO4 HFA INHALER IH PRN (22:14)
[2022-03-13 09:16] VITALS: BP 121/69; PULSE 96; TEMP 97.7
== END 2022-03-13 10:20 | disposition home or self-care (01) | DRG 773 ==
LOC: YASAS 00:41 → Y3N 01:29
PROVIDERS: ADMIT Allergy & Immunology; ATTEND Surgery
PROC: HZ2ZZZZ Detoxification Services for Substance Abuse Treatment (ICD-10-PCS; principal; 2022-03-09)
DX: F11.23 Opioid dependence with withdrawal (principal); F14.20 Cocaine dependence, uncomplicated; F17.210 Nicotine dependence, cigarettes, uncomplicated; F19.24 Other psychoactive substance dependence with psychoactive substance-induced mood disorder; I10 Essential (primary) hypertension; G47.00 Insomnia, unspecified; J44.9 Chronic obstructive pulmonary disease, unspecified
CPT/HCPCS: 36415; 80053; 81003; 83036; 85025; 85027; 86780; C9803-CS; U0003; U0005